=== PATIENT | female | born 1955 | race Hispanic/Latino ===

== ENCOUNTER 2022-11-20 10:01 | Emergency (ER) | payer BC ==
--- OUTSIDE RECORDS SUMMARY | 2022-11-20 10:07 | XMS REPORT | Continuity of Care Document ---
:1955 Author Organization [facility] t Address [address] [place] [address] [address] [place] [address] Care Team Providers Name Role Phone Kiko Burch MD Primary Care Physician Kiko Burch MD Attending Clinician Jb Leigh MD Attending Clinician Lab, Ang - Db Attending Clinician Unavailable KIKO BURCH Attending Clinician Unavailable Doctor Unassigned, Byron Attending Clinician Unavailable PHILIPP PALOMO Attending Clinician Unavailable Nurse, Zamzam Pob Immunization Attending Clinician Unavailable Philipp Palomo DO Attending Clinician Toshia Regan Attending Clinician Lab, Adc Fam Pob I Attending Clinician Unavailable TOSHIA ATKINS Attending Clinician Unavailable MIRTHA SHINE Attending Clinician Unavailable Payers Payer Name Policy Type Policy Number Effective Date Expiration Date S ource Problems Condition Condition Condition Status Onset Resolution Last Treating Co mments Source Name Details Category Date Date Treatment Clinician Date Hyperlipid Hyperlipid Disease Active U nivers emia, emia, 2-19 ity [place] hyperlipid hyperlipid Br anch emia type emia type Neck pain Neck pain Disease Active Uni vers 4-25 ity of 00:00: [place] 00 Medical Branch Anxiety Anxiety Disease Active 2014-03 Univers 1-17 ity of 00:00: [place] 00 Medical Branch Allergic Allergic Disease Active 2014-03 Unive rs rhinitis rhinitis 04-16 ity of 00:00: [place] 00 Medical Branch Arthritis Arthritis Disease Active 2014-03 Uni vers 04-16 ity of 00:00: [place] 00 Medical Branch Menopausal Menopausal Disease Active 2014-03 U nivers and and 04-16 ity of postmenopa postmenopa [place]al 00 Medical disorder disorder Branch Allergies, Adverse Reactions, Alerts Allergy Allergy Status Severity Reaction(s) Onset Inactive Treating Comm ents Source Name Type Date Date Clinician CODEINE DRUG Active Unknown-Cmnt 2014-03 Uni vers INGREDI 04-16 ity of 00:00: [place] 00 Medical Branch Codeine Propensi Active Unknown - 2014-03 Univ ers ty to See comments 04-16 ity of adverse 00:00: [place] reaction 00 Medical s Branch Social History Social Habit Start Date Stop Date Quantity Comments Source History of tobacco Current smoker Un iversity of use [facility] Gender identity Universit y of [facility] Sexual orientation Univer sity of [facility] History SDOH University [facility] History SDOH University o f Alcohol Std Drinks [place] [facility] [place] History SDOH University o f Alcohol Binge [place] [facility] History of Social 2022-09-04 2022-09-04 Univers ity of function 00:00:00 00:00:00 [facility] Exposure to 2021-06-02 2021-07-02 Not sure University of SARS-CoV-2 (event) 00:00:00 10:23:00 [facility] Alcohol intake 2021-07-02 2021-07-02 Current drinker of Un iversity of 00:00:00 00:00:00 alcohol (finding) [facility] [place] [facility] [place] Tobacco use and 2015-02-14 2015-02-14 Smokeless tobacco Un iversity of exposure 00:00:00 00:00:00 non-user [facility] Alcohol Comment 2015-02-14 2015-02-14 occasionally Univers ity of 00:00:00 00:00:00 [facility] Sex [birth year] Universit y of 00:00:00 00:00:00 [facility] Smoking Status Start Date Stop Date Source Ex-smoker 2015-02-14 00:00:00 2015-02-14 00:00:00 [facility] Medications Ordered Filled Start Stop Current Ordering Indication Dosage Frequency Signature Comments Components Source Medication Medication Date Date Medication? Clinician (SIG) Name Name FLUTICASONE Yes [id number] SPRAY 2 Univers PROPIONATE 8-15 SPRAYS ity of 50 00:00: INTO EACH [place] mcg/actuati 00 NOSTRIL IN Me dical on nasal THE Branch spray MORNING LEVOCETIRIZ Yes [id number] TAKE 1 Univers INE 5 mg 8-15 TABLET BY ity of tablet 00:00: MOUTH [place] 00 EVERY DAY Medical IN THE Branch EVENING estradioL 1 2022- Yes [id number] 1mg Take 1 Univers mg tablet 6-20 tablet by ity o f 00:00: mouth in [place] 00 the Medical morning. Branch estradioL 1 Yes [id number] 1mg Take 1 Univers mg tablet 6-20 tablet by ity o f 00:00: mouth in [place] 00 the Medical morning. Branch FENOFIBRATE Yes [id number] TAKE 1 Univers 160 mg 6-07 TABLET BY ity of tablet 00:00: MOUTH [place] 00 EVERY DAY Medical Branch FENOFIBRATE Yes [id number] TAKE 1 Univers 160 mg 6-07 TABLET BY ity of tablet 00:00: MOUTH [place] 00 EVERY DAY Medical Branch venlafaxine Yes [id number] 150mg Take 1 Univers XR 150 mg 6-07 capsule by ity of 24 hr 00:00: mouth [place] capsule 00 daily with Medica l breakfast. Branch fluticasone Yes [id number] 2{spray Use 2 Univers propionate 6-07 } Sprays in ity of 50 00:00: each [place] mcg/actuati 00 nostril in Me dical on nasal the Branch spray morning. Fenofibrate Yes [id number] 160mg Take 1 Univers 160 mg 6-07 tablet by ity of tablet 00:00: mouth in [place] 00 the Medical morning. Branch atorvastati Yes [id number] 20mg Take 1 Univers n 20 mg 6-07 tablet by ity of tablet 00:00: mouth at [place] 00 bedtime. Medical Branch fluocinonid Yes [id number] Apply to Univers e 0.05 % 6-07 area(s) 2 ity of cream 00:00: (two) [place] 00 times Medical daily. Branch venlafaxine Yes [id number] 150mg Take 1 Univers XR 150 mg 6-07 capsule by ity of 24 hr 00:00: mouth [place] capsule 00 daily with Medica l breakfast. Branch fluticasone 2022-0 Yes [id number] 2{spray Use 2 Univers propionate 6-07 } Sprays in ity of 50 00:00: each [place] mcg/actuati 00 nostril in Me dical on nasal the Branch spray morning. Fenofibrate 2022-0 Yes [id number] 160mg Take 1 Univers 160 mg 6-07 tablet by ity of tablet 00:00: mouth in [place] the Medical morning. Branch atorvastati 0 Yes [id number] 20mg Take 1 Univers n 20 mg 6-07 tablet by ity of tablet 00:00: mouth at [place] 00 bedtime. Medical Branch fluocinonid 2022-0 Yes [id number] Apply to Univers e 0.05 % 6-07 area(s) 2 ity of cream 00:00: (two) [place] 00 times Medical daily. Branch venlafaxine Yes [id number] 150mg Take 1 Univers XR 150 mg 6-07 capsule by ity of 24 hr 00:00: mouth [place] capsule 00 daily with Medica l breakfast. Branch fluticasone Yes [id number] 2{spray Use 2 Univers propionate 6-07 } Sprays in ity of 50 00:00: each [place] mcg/actuati 00 nostril in Me dical on nasal the Branch spray morning. Fenofibrate 2022-0 Yes [id number] 160mg Take 1 Univers 160 mg 6-07 tablet by ity of tablet 00:00: mouth in [place] the Medical morning. Branch atorvastati 2022-0 Yes [id number] 20mg Take 1 Univers n 20 mg 6-07 tablet by ity of tablet 00:00: mouth at [place] 00 bedtime. Medical Branch fluocinonid 2022-0 Yes [id number] Apply to Univers e 0.05 % 6-07 area(s) 2 ity of cream 00:00: (two) [place] 00 times Medical daily. Branch venlafaxine 2022-0 Yes [id number] 150mg Take 1 Univers XR 150 mg 6-07 capsule by ity of 24 hr 00:00: mouth [place] capsule 00 daily with Medica l breakfast. Branch fluticasone 2022-0 Yes [id number] 2{spray Use 2 Univers propionate 6-07 } Sprays in ity of 50 00:00: each [place] mcg/actuati 00 nostril in Me dical on nasal the Branch spray morning. Fenofibrate 2022-0 Yes [id number] 160mg Take 1 Univers 160 mg 6-07 tablet by ity of tablet 00:00: mouth in [place] 00 the Medical morning. Branch atorvastati 2022-0 Yes [id number] 20mg Take 1 Univers n 20 mg 6-07 tablet by ity of tablet 00:00: mouth at [place] 00 bedtime. Medical Branch fluocinonid 2022-0 Yes [id number] Apply to Univers e 0.05 % 6-07 area(s) 2 ity of cream 00:00: (two) [place] 00 times Medical daily. Branch venlafaxine 0 Yes [id number] 150mg Take 1 Univers XR 150 mg 6-07 capsule by ity of 24 hr 00:00: mouth [place] capsule 00 daily with Medica l breakfast. Branch fluticasone 2022-0 Yes [id number] 2{spray Use 2 Univers propionate 6-07 } Sprays in ity of 50 00:00: each [place] mcg/actuati 00 nostril in Me dical on nasal the Branch spray morning. Fenofibrate 2022-0 Yes [id number] 160mg Take 1 Univers 160 mg 6-07 tablet by ity of tablet 00:00: mouth in [place] the Medical morning. Branch atorvastati 2022-0 Yes [id number] 20mg Take 1 Univers n 20 mg 6-07 tablet by ity of tablet 00:00: mouth at [place] 00 bedtime. Medical Branch fluocinonid 2022-0 Yes [id number] Apply to Univers e 0.05 % 6-07 area(s) 2 ity of cream 00:00: (two) [place] 00 times Medical daily. Branch venlafaxine 2022-0 Yes [id number] 150mg Take 1 Univers XR 150 mg 6-07 capsule by ity of 24 hr 00:00: mouth [place] capsule 00 daily with Medica l breakfast. Branch Fenofibrate Yes [id number] 160mg Take 1 Univers 160 mg 6-07 tablet by ity of tablet 00:00: mouth in [place] 00 the Medical morning. Branch atorvastati Yes [id number] 20mg Take 1 Univers n 20 mg 6-07 tablet by ity of tablet 00:00: mouth at [place] 00 bedtime. Medical Branch fluocinonid Yes [id number] Apply to Univers e 0.05 % 09-04 area(s) 2 ity of cream 00:00: (two) [place] 00 times Medical daily. Branch fluticasone 2022- No [id number] 2{spray Use 2 Univers propionate 09-04 08-15 } Sprays in ity of 50 00:00: 00:00 each [place] mcg/actuati 00 :00 nostril in Fl dical on nasal the Branch spray morning. FENOFIBRATE 2022- No [id number] TAKE 1 Univers 160 mg 6-07 06-07 TABLET BY ity of tablet 00:00: 00:00 MOUTH [place] 00 :00 EVERY DAY Medical Branch FENOFIBRATE 2022- No [id number] TAKE 1 Univers 160 mg 6-07 06-07 TABLET BY ity of tablet 00:00: 00:00 MOUTH [place] 00 :00 EVERY DAY Medical Branch ATORVASTATI Yes [id number] 20mg TAKE 1 Univers N 20 mg 5-24 TABLET BY ity of tablet 00:00: MOUTH AT [place] [address] BEDTIME. Medical NEED APPT Branch AND FASTING LABS FOR FURTHER REFILLS ATORVASTATI Yes [id number] 20mg TAKE 1 Univers N 20 mg 5-24 TABLET BY ity of tablet 00:00: MOUTH AT [place] [address] BEDTIME. Medical NEED APPT Branch AND FASTING LABS FOR FURTHER REFILLS ATORVASTATI 2022- Yes [id number] 20mg TAKE 1 Univers N 20 mg 5-24 TABLET BY ity of tablet 00:00: MOUTH AT [place] [address] BEDTIME. Medical NEED APPT Branch AND FASTING LABS FOR FURTHER REFILLS ATORVASTATI 0 Yes [id number] 20mg TAKE 1 Univers N 20 mg 5-24 TABLET BY ity of tablet 00:00: MOUTH AT [place] 00 BEDTIME. Medical NEED APPT Branch AND FASTING LABS FOR FURTHER REFILLS ATORVASTATI 2022- No [id number] 20mg TAKE 1 Univers N 20 mg 5-24 06-07 TABLET BY ity of tablet 00:00: 00:00 MOUTH AT [place] 00 :00 BEDTIME. Medical NEED APPT Branch AND FASTING LABS FOR FURTHER REFILLS ATORVASTATI 2022- No [id number] 20mg TAKE 1 Univers N 20 mg 5-24 06-07 TABLET BY ity of tablet 00:00: 00:00 MOUTH AT [place] 00 :00 BEDTIME. Medical NEED APPT Branch AND FASTING LABS FOR FURTHER REFILLS atorvastati Yes [id number] 20mg Take 1 Univers n 20 mg 4-29 tablet by ity of tablet 00:00: mouth at [place] 00 bedtime. Medical Need Appt Branch and Fasting Labs for Further Refills atorvastati Yes [id number] 20mg Take 1 Univers n 20 mg 4-29 tablet by ity of tablet 00:00: mouth at [place] [address] bedtime. Medical Need Appt Branch and Fasting Labs for Further Refills atorvastati 2022- No [id number] 20mg Take 1 Univers n 20 mg 4-29 05-24 tablet by ity of tablet 00:00: 00:00 mouth at [place] 00 :00 bedtime. Medical Need Appt Branch and Fasting Labs for Further Refills FLUTICASONE Yes [id number] SPRAY 2 Univers PROPIONATE 3-22 SPRAYS ity of 50 00:00: INTO EACH [place] mcg/actuati 00 NOSTRIL Medic al on nasal EVERY DAY Branch spray FLUTICASONE 2022-0 Yes [id number] SPRAY 2 Univers PROPIONATE 3-22 SPRAYS ity of 50 00:00: INTO EACH [place] mcg/actuati 00 NOSTRIL Medic al on nasal EVERY DAY Branch spray FLUTICASONE 2022-0 Yes [id number] SPRAY 2 Univers PROPIONATE 3-22 SPRAYS ity of 50 00:00: INTO EACH [place] mcg/actuati 00 NOSTRIL Medic al on nasal EVERY DAY Branch spray FLUTICASONE 2022-0 Yes [id number] SPRAY 2 Univers PROPIONATE 3-22 SPRAYS ity of 50 00:00: INTO EACH [place] mcg/actuati 00 NOSTRIL Medic al on nasal EVERY DAY Branch spray FLUTICASONE Yes [id number] SPRAY 2 Univers PROPIONATE 3-22 SPRAYS ity of 50 00:00: INTO EACH [place] mcg/actuati 00 NOSTRIL Medic al on nasal EVERY DAY Branch spray FLUTICASONE Yes [id number] SPRAY 2 Univers PROPIONATE 3-22 SPRAYS ity of 50 00:00: INTO EACH [place] mcg/actuati 00 NOSTRIL Medic al on nasal EVERY DAY Branch spray FLUTICASONE Yes [id number] SPRAY 2 Univers PROPIONATE 3-22 SPRAYS ity of 50 00:00: INTO EACH [place] mcg/actuati 00 NOSTRIL Medic al on nasal EVERY DAY Branch spray FLUTICASONE Yes [id number] SPRAY 2 Univers PROPIONATE 3-22 SPRAYS ity of 50 00:00: INTO EACH [place] mcg/actuati 00 NOSTRIL Medic al on nasal EVERY DAY Branch spray FLUTICASONE 2022- No [id number] SPRAY 2 Univers PROPIONATE 3-22 06-07 SPRAYS ity of 50 00:00: 00:00 INTO EACH [place] mcg/actuati 00 :00 NOSTRIL Medic al on nasal EVERY DAY Branch spray FLUTICASONE 2022- No [id number] SPRAY 2 Univers PROPIONATE 3-22 06-07 SPRAYS ity of 50 00:00: 00:00 INTO EACH [place] mcg/actuati 00 :00 NOSTRIL Medic al on nasal EVERY DAY Branch spray FLUTICASONE Yes [id number] SPRAY 2 Univers PROPIONATE 2-24 SPRAYS ity of 50 00:00: INTO EACH [place] mcg/actuati 00 NOSTRIL Medic al on nasal EVERY DAY Branch spray FLUTICASONE Yes [id number] SPRAY 2 Univers PROPIONATE 2-24 SPRAYS ity of 50 00:00: INTO EACH [place] mcg/actuati 00 NOSTRIL Medic al on nasal EVERY DAY Branch spray FLUTICASONE 2022- No [id number] SPRAY 2 Univers PROPIONATE 2-24 03-22 SPRAYS ity of 50 00:00: 00:00 INTO EACH [place] mcg/actuati 00 :00 NOSTRIL Medic al on nasal EVERY DAY Branch spray LEVOCETIRIZ Yes [id number] TAKE 1 Univers INE 5 mg 2-20 TABLET BY ity of tablet 00:00: MOUTH [place] 00 EVERY DAY Medical IN THE [place] EVENING LEVOCETIRIZ Yes [id number] TAKE 1 Univers INE 5 mg 2-20 TABLET BY ity of tablet 00:00: MOUTH [place] 00 EVERY DAY Medical IN THE [place] EVENING LEVOCETIRIZ 0 Yes [id number] TAKE 1 Univers INE 5 mg 2-20 TABLET BY ity of tablet 00:00: MOUTH [place] 00 EVERY DAY Medical IN THE [place] EVENING LEVOCETIRIZ Yes [id number] TAKE 1 Univers INE 5 mg 2-20 TABLET BY ity of tablet 00:00: MOUTH [place] 00 EVERY DAY Medical IN THE [place] EVENING LEVOCETIRIZ Yes [id number] TAKE 1 Univers INE 5 mg 2-20 TABLET BY ity of tablet 00:00: MOUTH [place] 00 EVERY DAY Medical IN THE [place] EVENING LEVOCETIRIZ Yes [id number] TAKE 1 Univers INE 5 mg 2-20 TABLET BY ity of tablet 00:00: MOUTH [place] 00 EVERY DAY Medical IN THE [place] EVENING LEVOCETIRIZ Yes [id number] TAKE 1 Univers INE 5 mg 2-20 TABLET BY ity of tablet 00:00: MOUTH [place] 00 EVERY DAY Medical IN THE [place] EVENING LEVOCETIRIZ Yes [id number] TAKE 1 Univers INE 5 mg 2-20 TABLET BY ity of tablet 00:00: MOUTH [place] 00 EVERY DAY Medical IN THE [place] EVENING LEVOCETIRIZ Yes [id number] TAKE 1 Univers INE 5 mg 2-20 TABLET BY ity of tablet 00:00: MOUTH [place] 00 EVERY DAY Medical IN THE [place] EVENING LEVOCETIRIZ Yes [id number] TAKE 1 Univers INE 5 mg 2-20 TABLET BY ity of tablet 00:00: MOUTH [place] 00 EVERY DAY Medical IN THE [place] EVENING LEVOCETIRIZ Yes [id number] TAKE 1 Univers INE 5 mg 2-20 TABLET BY ity of tablet 00:00: MOUTH [place] 00 EVERY DAY Medical IN THE [place] EVENING LEVOCETIRIZ 0 Yes [id number] TAKE 1 Univers INE 5 mg 2-20 TABLET BY ity of tablet 00:00: MOUTH [place] 00 EVERY DAY Medical IN THE [place] EVENING LEVOCETIRIZ Yes [id number] TAKE 1 Univers INE 5 mg 2-20 TABLET BY ity of tablet 00:00: MOUTH [place] 00 EVERY DAY Medical IN THE [place] EVENING LEVOCETIRIZ 2022-0 Yes [id number] TAKE 1 Univers INE 5 mg 2-20 TABLET BY ity of tablet 00:00: MOUTH [place] 00 EVERY DAY Medical IN THE [place] EVENING LEVOCETIRIZ 2022-0 Yes [id number] TAKE 1 Univers INE 5 mg 2-20 TABLET BY ity of tablet 00:00: MOUTH [place] 00 EVERY DAY Medical IN THE [place] EVENING LEVOCETIRIZ 2022-0 Yes [id number] TAKE 1 Univers INE 5 mg 2-20 TABLET BY ity of tablet 00:00: MOUTH [place] 00 EVERY DAY Medical IN THE [place] EVENING LEVOCETIRIZ 0 2023- No [id number] TAKE 1 Univers INE 5 mg 2-20 08-15 TABLET BY ity o f tablet 00:00: 00:00 MOUTH [place] 00 :00 EVERY DAY Medical IN THE [place] EVENING VENLAFAXINE 0 Yes [id number] 150mg TAKE 1 Univers XR 150 mg 2-14 CAPSULE BY ity of 24 hr 00:00: MOUTH [place] capsule 00 DAILY WITH Medica l BREAKFAST. [place] VENLAFAXINE Yes [id number] 150mg TAKE 1 Univers XR 150 mg 2-14 CAPSULE BY ity of 24 hr 00:00: MOUTH [place] capsule 00 DAILY WITH Medica l BREAKFAST. [place] VENLAFAXINE 0 Yes [id number] 150mg TAKE 1 Univers XR 150 mg 2-14 CAPSULE BY ity of 24 hr 00:00: MOUTH [place] capsule 00 DAILY WITH Medica l BREAKFAST. [place] VENLAFAXINE 0 Yes [id number] 150mg TAKE 1 Univers XR 150 mg 2-14 CAPSULE BY ity of 24 hr 00:00: MOUTH [place] capsule 00 DAILY WITH Medica l BREAKFAST. [place] VENLAFAXINE 0 Yes [id number] 150mg TAKE 1 Univers XR 150 mg 2-14 CAPSULE BY ity of 24 hr 00:00: MOUTH [place] capsule 00 DAILY WITH Medica l BREAKFAST. [place] VENLAFAXINE 0 Yes [id number] 150mg TAKE 1 Univers XR 150 mg 2-14 CAPSULE BY ity of 24 hr 00:00: MOUTH [place] capsule 00 DAILY WITH Medica l BREAKFAST. [place] VENLAFAXINE Yes [id number] 150mg TAKE 1 Univers XR 150 mg 2-14 CAPSULE BY ity of 24 hr 00:00: MOUTH [place] capsule 00 DAILY WITH Medica l BREAKFAST. Branch VENLAFAXINE 2022-0 Yes [id number] 150mg TAKE 1 Univers XR 150 mg 2-14 CAPSULE BY ity of 24 hr 00:00: MOUTH [place] capsule 00 DAILY WITH Medica l BREAKFAST. Branch VENLAFAXINE 2022-0 Yes [id number] 150mg TAKE 1 Univers XR 150 mg 2-14 CAPSULE BY ity of 24 hr 00:00: MOUTH [place] capsule 00 DAILY WITH Medica l BREAKFAST. Branch VENLAFAXINE 2022-0 Yes [id number] 150mg TAKE 1 Univers XR 150 mg 2-14 CAPSULE BY ity of 24 hr 00:00: MOUTH [place] capsule 00 DAILY WITH Medica l BREAKFAST. Branch VENLAFAXINE 2022-0 Yes [id number] 150mg TAKE 1 Univers XR 150 mg 2-14 CAPSULE BY ity of 24 hr 00:00: MOUTH [place] capsule 00 DAILY WITH Medica l BREAKFAST. Branch VENLAFAXINE 2022-0 Yes [id number] 150mg TAKE 1 Univers XR 150 mg 2-14 CAPSULE BY ity of 24 hr 00:00: MOUTH [place] capsule 00 DAILY WITH Medica l BREAKFAST. Branch VENLAFAXINE 0 3- No [id number] 150mg TAKE 1 Univers XR 150 mg 2-14 06-07 CAPSULE BY ity of 24 hr 00:00: 00:00 MOUTH [place] capsule 00 :00 DAILY WITH Medica l BREAKFAST. Branch VENLAFAXINE 2022-0 3- No [id number] 150mg TAKE 1 Univers XR 150 mg 2-14 06-07 CAPSULE BY ity of 24 hr 00:00: 00:00 MOUTH [place] capsule 00 :00 DAILY WITH Medica l BREAKFAST. Branch ATORVASTATI 2022-0 Yes [id number] TAKE 1 Univers N 20 mg 2-01 TABLET BY ity of tablet 00:00: MOUTH [place] 00 EVERYDAY Medical AT BEDTIME Branch ATORVASTATI 2022-0 Yes [id number] TAKE 1 Univers N 20 mg 2-01 TABLET BY ity of tablet 00:00: MOUTH [place] 00 EVERYDAY Medical AT BEDTIME Branch ATORVASTATI 2022-0 Yes [id number] TAKE 1 Univers N 20 mg 2-01 TABLET BY ity of tablet 00:00: MOUTH [place] 00 EVERYDAY Medical AT BEDTIME Branch ATORVASTATI 2022-0 Yes [id number] TAKE 1 Univers N 20 mg 2-01 TABLET BY ity of tablet 00:00: MOUTH [place] 00 EVERYDAY Medical AT BEDTIME Branch ATORVASTATI 0 Yes [id number] TAKE 1 Univers N 20 mg 2-01 TABLET BY ity of tablet 00:00: MOUTH [place] 00 EVERYDAY Medical AT BEDTIME Branch ATORVASTATI 2022-0 Yes [id number] TAKE 1 Univers N 20 mg 2-01 TABLET BY ity of tablet 00:00: MOUTH [place] 00 EVERYDAY Medical AT BEDTIME Branch ATORVASTATI 2022-0 Yes [id number] TAKE 1 Univers N 20 mg 2-01 TABLET BY ity of tablet 00:00: MOUTH [place] 00 EVERYDAY Medical AT BEDTIME Branch ATORVASTATI 0 2022- No [id number] TAKE 1 Univers N 20 mg 2-01 - TABLET BY ity of tablet 00:00: 00:00 MOUTH [place] 00 :00 EVERYDAY Medical AT BEDTIME Branch FLUTICASONE 0 Yes [id number] SPRAY 2 Univers PROPIONATE 1-30 SPRAYS ity of 50 00:00: INTO EACH [place] mcg/actuati 00 NOSTRIL Medic al on nasal EVERY DAY Branch spray FLUTICASONE Yes [id number] SPRAY 2 Univers PROPIONATE 1-30 SPRAYS ity of 50 00:00: INTO EACH [place] mcg/actuati 00 NOSTRIL Medic al on nasal EVERY DAY Branch spray FLUTICASONE 0 Yes [id number] SPRAY 2 Univers PROPIONATE 1-30 SPRAYS ity of 50 00:00: INTO EACH [place] mcg/actuati 00 NOSTRIL Medic al on nasal EVERY DAY Branch spray FLUTICASONE 0 Yes [id number] SPRAY 2 Univers PROPIONATE 1-30 SPRAYS ity of 50 00:00: INTO EACH [place] mcg/actuati 00 NOSTRIL Medic al on nasal EVERY DAY Branch spray FLUTICASONE 0 2022- No [id number] SPRAY 2 Univers PROPIONATE 1-30 02-24 SPRAYS ity of 50 00:00: 00:00 INTO EACH [place] mcg/actuati 00 :00 NOSTRIL Medic al on nasal EVERY DAY Branch spray FLUTICASONE 1 Yes [id number] SPRAY 2 Univers PROPIONATE 2-30 SPRAYS ity of 50 00:00: INTO EACH [place] mcg/actuati 00 NOSTRIL Medic al on nasal EVERY DAY Branch spray FLUTICASONE 2021-033- No [id number] SPRAY 2 Univers PROPIONATE 2-30 01-30 SPRAYS ity of 50 00:00: 00:00 INTO EACH [place] mcg/actuati 00 :00 NOSTRIL Medic al on nasal EVERY DAY Branch spray FENOFIBRATE 2021-03 Yes [id number] TAKE 1 Univers 160 mg 2-12 TABLET BY ity of tablet 00:00: [facility] EVERY DAY Medical Branch FENOFIBRATE 2021-03 Yes [id number] TAKE 1 Univers 160 mg 2-12 TABLET BY ity of tablet 00:00: [facility] EVERY DAY Medical Branch FENOFIBRATE 2021-03 Yes [id number] TAKE 1 Univers 160 mg 2-12 TABLET BY ity of tablet 00:00: [facility] EVERY DAY Medical Branch FENOFIBRATE 2021-03 Yes [id number] TAKE 1 Univers 160 mg 2-12 TABLET BY ity of tablet 00:00: [facility] EVERY DAY Medical Branch FENOFIBRATE 2021-03 Yes [id number] TAKE 1 Univers 160 mg 2-12 TABLET BY ity of tablet 00:00: [facility] EVERY DAY Medical Branch FENOFIBRATE 2021-03 Yes [id number] TAKE 1 Univers 160 mg 2-12 TABLET BY ity of tablet 00:00: [facility] EVERY DAY Medical Branch FENOFIBRATE 2021-03 Yes [id number] TAKE 1 Univers 160 mg 2-12 TABLET BY ity of tablet 00:00: [facility] EVERY DAY Medical Branch FENOFIBRATE 2021-03 Yes [id number] TAKE 1 Univers 160 mg 2-12 TABLET BY ity of tablet 00:00: [facility] EVERY DAY Medical Branch FENOFIBRATE 2021-03 Yes [id number] TAKE 1 Univers 160 mg 2-12 TABLET BY ity of tablet 00:00: [facility] EVERY DAY Medical Branch FENOFIBRATE 2021-03 Yes [id number] TAKE 1 Univers 160 mg 2-12 TABLET BY ity of tablet 00:00: [facility] EVERY DAY Medical Branch FENOFIBRATE 2021-03 Yes [id number] TAKE 1 Univers 160 mg 2-12 TABLET BY ity of tablet 00:00: [facility] EVERY DAY Medical Branch FENOFIBRATE 2021-03 Yes [id number] TAKE 1 Univers 160 mg 2-12 TABLET BY ity of tablet 00:00: MOUTH [place] 00 EVERY DAY Medical Branch FENOFIBRATE 2021-03 Yes [id number] TAKE 1 Univers 160 mg 2-12 TABLET BY ity of tablet 00:00: MOUTH [place] 00 EVERY DAY Medical Branch FENOFIBRATE 2021-03 Yes [id number] TAKE 1 Univers 160 mg 2-12 TABLET BY ity of tablet 00:00: MOUTH [place] 00 EVERY DAY Medical Branch FENOFIBRATE 2021-03- No [id number] TAKE 1 Univers 160 mg 2-12 06-07 TABLET BY ity of tablet 00:00: 00:00 MOUTH [place] 00 :00 EVERY DAY Medical Branch FLUTICASONE 2021-03 Yes [id number] SPRAY 2 Univers PROPIONATE 1-30 SPRAYS ity of 50 00:00: INTO EACH [place] mcg/actuati 00 NOSTRIL Medic al on nasal EVERY DAY Branch spray FLUTICASONE 2021-03 Yes [id number] SPRAY 2 Univers PROPIONATE 1-30 SPRAYS ity of 50 00:00: INTO EACH [place] mcg/actuati 00 NOSTRIL Medic al on nasal EVERY DAY Branch spray FLUTICASONE 2021-03- No [id number] SPRAY 2 Univers PROPIONATE 1-30 12-30 SPRAYS ity of 50 00:00: 00:00 INTO EACH [place] mcg/actuati 00 :00 NOSTRIL Medic al on nasal EVERY DAY Branch spray LEVOCETIRIZ 2021-03 Yes [id number] TAKE 1 Univers INE 5 mg 1-21 TABLET BY ity of tablet 00:00: MOUTH [place] 00 EVERY DAY Medical IN THE Branch EVENING LEVOCETIRIZ 2021-03 Yes [id number] TAKE 1 Univers INE 5 mg 1-21 TABLET BY ity of tablet 00:00: MOUTH [place] 00 EVERY DAY Medical IN THE Branch EVENING LEVOCETIRIZ 2021-03 Yes [id number] TAKE 1 Univers INE 5 mg 1-21 TABLET BY ity of tablet 00:00: MOUTH [place] 00 EVERY DAY Medical IN THE Branch EVENING LEVOCETIRIZ 2021-03 Yes [id number] TAKE 1 Univers INE 5 mg 1-21 TABLET BY ity of tablet 00:00: MOUTH [place] 00 EVERY DAY Medical IN THE Branch EVENING LEVOCETIRIZ 2021-03 Yes [id number] TAKE 1 Univers INE 5 mg 1-21 TABLET BY ity of tablet 00:00: MOUTH [place] 00 EVERY DAY Medical IN THE Branch EVENING LEVOCETIRIZ 2021-03 Yes [id number] TAKE 1 [facility] INE 5 mg 1-21 TABLET BY [facility] of tablet 00:00: MOUTH [place] 00 EVERY DAY Medical IN THE Branch EVENING LEVOCETIRIZ 2021-03 Yes [id number] TAKE 1 [facility] INE 5 mg 1-21 TABLET BY [facility] of tablet 00:00: MOUTH [place] 00 EVERY DAY Medical IN THE [place] EVENING LEVOCETIRIZ 2021-033- No [id number] TAKE 1 [facility] INE 5 mg 1-21 02-20 TABLET BY ity o f tablet 00:00: 00:00 MOUTH [place] 00 :00 EVERY DAY Medical IN THE [place] EVENING ESTRADIOL 1 2021-03 Yes [id number] TAKE 1 [facility] mg tablet 1-18 TABLET BY ity o f 00:00: MOUTH [place] 00 EVERY DAY Medical Branch ESTRADIOL 1 2021-03 Yes [id number] TAKE 1 [facility] mg tablet 1-18 TABLET BY ity o f 00:00: MOUTH [place] 00 EVERY DAY Medical Branch ESTRADIOL 1 2021-03 Yes [id number] TAKE 1 [facility] mg tablet 1-18 TABLET BY ity o f 00:00: MOUTH [place] 00 EVERY DAY Medical Branch ESTRADIOL 1 2021-03 Yes [id number] TAKE 1 [facility] mg tablet 1-18 TABLET BY ity o f 00:00: MOUTH [place] 00 EVERY DAY Medical Branch ESTRADIOL 1 2021-03 Yes [id number] TAKE 1 [facility] mg tablet 1-18 TABLET BY ity o f 00:00: MOUTH [place] 00 EVERY DAY Medical Branch ESTRADIOL 1 2021-03 Yes [id number] TAKE 1 [facility] mg tablet 1-18 TABLET BY ity o f 00:00: MOUTH [place] 00 EVERY DAY Medical Branch ESTRADIOL 1 2021-03 Yes [id number] TAKE 1 [facility] mg tablet 1-18 TABLET BY ity o f 00:00: MOUTH [place] 00 EVERY DAY Medical Branch ESTRADIOL 1 2021-03 Yes [id number] TAKE 1 [facility] mg tablet 1-18 TABLET BY ity o f 00:00: MOUTH [place] 00 EVERY DAY Medical Branch ESTRADIOL 1 2021-03 Yes [id number] TAKE 1 [facility] mg tablet 1-18 TABLET BY ity o f 00:00: MOUTH [place] 00 EVERY DAY Medical Branch ESTRADIOL 1 2021-03 Yes [id number] TAKE 1 [facility] mg tablet 1-18 TABLET BY ity o f 00:00: MOUTH [place] 00 EVERY DAY Medical Branch ESTRADIOL 1 2021-03 Yes [id number] TAKE 1 [facility] mg tablet 1-18 TABLET BY ity o f 00:00: MOUTH [place] 00 EVERY DAY Medical Branch ESTRADIOL 1 2021-03 Yes [id number] TAKE 1 [facility] mg tablet 1-18 TABLET BY ity o f 00:00: MOUTH [place] 00 EVERY DAY Medical Branch ESTRADIOL 1 2021-03 Yes [id number] TAKE 1 [facility] mg tablet 1-18 TABLET BY ity o f 00:00: MOUTH [place] 00 EVERY DAY Medical Branch ESTRADIOL 1 2021-03 Yes [id number] TAKE 1 [facility] mg tablet 1-18 TABLET BY ity o f 00:00: MOUTH [place] 00 EVERY DAY Medical Branch ESTRADIOL 1 2021-03 Yes [id number] TAKE 1 [facility] mg tablet 1-18 TABLET BY ity o f 00:00: MOUTH [place] 00 EVERY DAY Medical Branch ESTRADIOL 1 2021-03 Yes [id number] TAKE 1 [facility] mg tablet 1-18 TABLET BY ity o f 00:00: MOUTH [place] 00 EVERY DAY Medical Branch ESTRADIOL 1 2021-03 Yes [id number] TAKE 1 [facility] mg tablet 1-18 TABLET BY ity o f 00:00: MOUTH [place] 00 EVERY DAY Medical Branch ESTRADIOL 1 2021-03 Yes [id number] TAKE 1 [facility] mg tablet 1-18 TABLET BY ity o f 00:00: MOUTH [place] 00 EVERY DAY Medical Branch ESTRADIOL 1 2021-03 Yes [id number] TAKE 1 [facility] mg tablet 1-18 TABLET BY ity o f 00:00: MOUTH [place] 00 EVERY DAY Medical Branch ESTRADIOL 1 2021-03 Yes [id number] TAKE 1 [facility] mg tablet 1-18 TABLET BY ity o f 00:00: MOUTH [place] 00 EVERY DAY Medical Branch ESTRADIOL 1 2021-03 Yes [id number] TAKE 1 [facility] mg tablet 1-18 TABLET BY ity o f 00:00: MOUTH [place] 00 EVERY DAY Medical Branch ESTRADIOL 1 2021-03 Yes [id number] TAKE 1 [facility] mg tablet 1-18 TABLET BY ity o f 00:00: MOUTH [place] 00 EVERY DAY Medical Branch ESTRADIOL 1 2021-2022- No [id number] TAKE 1 [facility] mg tablet 1-18 06-20 TABLET BY ity of 00:00: 00:00 MOUTH [place] 00 :00 EVERY DAY Medical Branch atorvastati 2021-03 Yes [id number] TAKE 1 [facility] n 20 mg 1-01 TABLET BY ity of tablet 00:00: MOUTH [place] 00 EVERYDAY Medical AT BEDTIME Branch atorvastati 2021-03 Yes [id number] TAKE 1 [facility] n 20 mg 1-01 TABLET BY ity of tablet 00:00: MOUTH [place] 00 EVERYDAY Medical AT [facility] 2021-03 Yes [id number] TAKE 1 [facility] n 20 mg 1-01 TABLET BY ity of tablet 00:00: MOUTH [place] 00 EVERYDAY Medical AT [facility] 2021-03 Yes [id number] TAKE 1 [facility] n 20 mg 1-01 TABLET BY ity of tablet 00:00: MOUTH [place] 00 EVERYDAY Medical AT [facility] 2021-03 Yes [id number] TAKE 1 [facility] n 20 mg 1-01 TABLET BY ity of tablet 00:00: MOUTH [place] 00 EVERYDAY Medical AT [facility] 2021-03 Yes [id number] TAKE 1 [facility] n 20 mg 1-01 TABLET BY ity of tablet 00:00: MOUTH [place] 00 EVERYDAY Medical AT [facility] 2021-03 Yes [id number] TAKE 1 [facility] n 20 mg 1-01 TABLET BY ity of tablet 00:00: MOUTH [place] 00 EVERYDAY Medical AT [facility] 2021-03 Yes [id number] TAKE 1 [facility] n 20 mg 1-01 TABLET BY ity of tablet 00:00: MOUTH [place] 00 EVERYDAY Medical AT [facility] 2021-03- No [id number] TAKE 1 [facility] n 20 mg 1-01 02- TABLET BY ity of tablet 00:00: 00:00 MOUTH [place] 00 :00 EVERYDAY Medical AT [facility] LEVOCETIR Yes [id number] TAKE 1 [facility] INE 5 mg 8-18 TABLET BY ity of tablet 00:00: MOUTH [place] 00 EVERY DAY Medical IN THE [place] EVENING LEVOCETIRIZ Yes [id number] TAKE 1 [facility] INE 5 mg 8-18 TABLET BY ity of tablet 00:00: MOUTH [place] 00 EVERY DAY Medical IN THE [place] EVENING LEVOCETIRIZ Yes [id number] TAKE 1 [facility] INE 5 mg 8-18 TABLET BY ity of tablet 00:00: MOUTH [place] 00 EVERY DAY Medical IN THE [place] EVENING LEVOCETIRIZ Yes [id number] TAKE 1 [facility] INE 5 mg 8-18 TABLET BY ity of tablet 00:00: MOUTH [place] 00 EVERY DAY Medical IN THE [place] EVENING LEVOCETIRIZ Yes [id number] TAKE 1 [facility] INE 5 mg 8-18 TABLET BY ity of tablet 00:00: MOUTH [place] 00 EVERY DAY Medical IN THE Branch EVENING LEVOCETIRIZ Yes [id number] TAKE 1 [facility] INE 5 mg 8-18 TABLET BY ity of tablet 00:00: MOUTH [place] 00 EVERY DAY Medical IN THE Branch EVENING LEVOCETIRIZ 0 Yes [id number] TAKE 1 [facility] INE 5 mg 8-18 TABLET BY ity of tablet 00:00: MOUTH [place] 00 EVERY DAY Medical IN THE Branch EVENING LEVOCETIRIZ 2021- No [id number] TAKE 1 [facility] INE 5 mg 8-18 11-21 TABLET BY ity o f tablet 00:00: 00:00 MOUTH [place] 00 :00 EVERY DAY Medical IN THE Branch EVENING FLUTICASONE Yes [id number] SPRAY 2 [facility] PROPIONATE 7-27 SPRAYS ity of 50 00:00: INTO EACH [place] mcg/actuati 00 NOSTRIL Medic al on nasal EVERY DAY Branch spray FLUTICASONE Yes [id number] SPRAY 2 [facility] PROPIONATE 7-27 SPRAYS ity of 50 00:00: INTO EACH [place] mcg/actuati 00 NOSTRIL Medic al on nasal EVERY DAY Branch spray FLUTICASONE Yes [id number] SPRAY 2 [facility] PROPIONATE 7-27 SPRAYS ity of 50 00:00: INTO EACH [place] mcg/actuati 00 NOSTRIL Medic al on nasal EVERY DAY Branch spray FLUTICASONE Yes [id number] SPRAY 2 [facility] PROPIONATE 7-27 SPRAYS ity of 50 00:00: INTO EACH [place] mcg/actuati 00 NOSTRIL Medic al on nasal EVERY DAY Branch spray FLUTICASONE Yes [id number] SPRAY 2 [facility] PROPIONATE 7-27 SPRAYS ity of 50 00:00: INTO EACH [place] mcg/actuati 00 NOSTRIL Medic al on nasal EVERY DAY Branch spray FLUTICASONE 0 Yes [id number] SPRAY 2 [facility] PROPIONATE 7-27 SPRAYS ity of 50 00:00: INTO EACH [place] mcg/actuati 00 NOSTRIL Medic al on nasal EVERY DAY Branch spray FLUTICASONE 0 Yes [id number] SPRAY 2 [facility] PROPIONATE 7-27 SPRAYS ity of 50 00:00: INTO EACH [place] mcg/actuati 00 NOSTRIL Medic al on nasal EVERY DAY Branch spray FLUTICASONE Yes [id number] SPRAY 2 [facility] PROPIONATE 7-27 SPRAYS ity of 50 00:00: INTO EACH [place] mcg/actuati 00 NOSTRIL Medic al on nasal EVERY DAY Branch spray FLUTICASONE Yes [id number] SPRAY 2 [facility] PROPIONATE 7-27 SPRAYS ity of 50 00:00: INTO EACH [place] mcg/actuati 00 NOSTRIL Medic al on nasal EVERY DAY Branch spray FLUTICASONE 2021- No [id number] SPRAY 2 [facility] PROPIONATE 7-27 11-30 SPRAYS ity of 50 00:00: 00:00 INTO EACH [place] mcg/actuati 00 :00 NOSTRIL Medic al on nasal EVERY DAY Branch spray VENLAFAXINE Yes [id number] 150mg TAKE 1 [facility] XR 150 mg 7-06 CAPSULE BY ity of 24 hr 00:00: MOUTH [place] capsule 00 DAILY WITH Medica l BREAKFAST. Branch VENLAFAXINE Yes [id number] 150mg TAKE 1 [facility] XR 150 mg 7-06 CAPSULE BY ity of 24 hr 00:00: MOUTH [place] capsule 00 DAILY WITH Medica l BREAKFAST. Branch VENLAFAXINE Yes [id number] 150mg TAKE 1 [facility] XR 150 mg 7-06 CAPSULE BY ity of 24 hr 00:00: MOUTH [place] capsule 00 DAILY WITH Medica l BREAKFAST. Branch VENLAFAXINE Yes [id number] 150mg TAKE 1 [facility] XR 150 mg 7-06 CAPSULE BY ity of 24 hr 00:00: MOUTH [place] capsule 00 DAILY WITH Medica l BREAKFAST. Branch VENLAFAXINE Yes [id number] 150mg TAKE 1 [facility] XR 150 mg 7-06 CAPSULE BY ity of 24 hr 00:00: MOUTH [place] capsule 00 DAILY WITH Medica l BREAKFAST. Branch VENLAFAXINE Yes [id number] 150mg TAKE 1 [facility] XR 150 mg 7-06 CAPSULE BY ity of 24 hr 00:00: MOUTH [place] capsule 00 DAILY WITH Medica l BREAKFAST. Branch VENLAFAXINE Yes [id number] 150mg TAKE 1 [facility] XR 150 mg 7-06 CAPSULE BY ity of 24 hr 00:00: MOUTH [place] capsule 00 DAILY WITH Medica l BREAKFAST. Branch VENLAFAXINE Yes [id number] 150mg TAKE 1 [facility] XR 150 mg 7-06 CAPSULE BY ity of 24 hr 00:00: MOUTH [place] capsule 00 DAILY WITH Medica l BREAKFAST. Branch VENLAFAXINE 0 Yes [id number] 150mg TAKE 1 [facility] XR 150 mg 7-06 CAPSULE BY ity of 24 hr 00:00: MOUTH [place] capsule 00 DAILY WITH Medica l BREAKFAST. Branch VENLAFAXINE 0 Yes [id number] 150mg TAKE 1 [facility] XR 150 mg 7-06 CAPSULE BY ity of 24 hr 00:00: MOUTH [place] capsule 00 DAILY WITH Medica l BREAKFAST. Branch VENLAFAXINE 0 Yes [id number] 150mg TAKE 1 [facility] XR 150 mg 7-06 CAPSULE BY ity of 24 hr 00:00: MOUTH [place] capsule 00 DAILY WITH Medica l BREAKFAST. Branch VENLAFAXINE Yes [id number] 150mg TAKE 1 [facility] XR 150 mg 7-06 CAPSULE BY ity of 24 hr 00:00: MOUTH [place] capsule 00 DAILY WITH Medica l BREAKFAST. Branch VENLAFAXINE 0 Yes [id number] 150mg TAKE 1 [facility] XR 150 mg 7-06 CAPSULE BY ity of 24 hr 00:00: MOUTH [place] capsule 00 DAILY WITH Medica l BREAKFAST. Branch VENLAFAXINE 0 Yes [id number] 150mg TAKE 1 [facility] XR 150 mg 7-06 CAPSULE BY ity of 24 hr 00:00: MOUTH [place] capsule 00 DAILY WITH Medica l BREAKFAST. Branch VENLAFAXINE Yes [id number] 150mg TAKE 1 [facility] XR 150 mg 7-06 CAPSULE BY ity of 24 hr 00:00: MOUTH [place] capsule 00 DAILY WITH Medica l BREAKFAST. Branch VENLAFAXINE 3- No [id number] 150mg TAKE 1 [facility] XR 150 mg 7-06 02-14 CAPSULE BY ity of 24 hr 00:00: 00:00 MOUTH [place] capsule 00 :00 DAILY WITH Medica l BREAKFAST. Branch FLUTICASONE 2021-0 Yes [id number] SPRAY 2 [facility] PROPIONATE 6-27 SPRAYS ity of 50 00:00: INTO EACH [place] mcg/actuati 00 NOSTRIL Medic al on nasal EVERY DAY Branch spray FLUTICASONE 2021-0 Yes [id number] SPRAY 2 [facility] PROPIONATE 6-27 SPRAYS ity of 50 00:00: INTO EACH [place] mcg/actuati 00 NOSTRIL Medic al on nasal EVERY DAY Branch spray FLUTICASONE 2021-0 2- No [id number] SPRAY 2 [facility] PROPIONATE 627 07-27 SPRAYS ity of 50 00:00: 00:00 INTO EACH [place] mcg/actuati 00 :00 NOSTRIL Medic al on nasal EVERY DAY Branch spray DICLOFENAC 2021-0 Yes [id number] TAKE 1 [facility] 50 mg EC 6-03 TABLET BY ity of tablet 00:00: [facility] 00 THREE Medical TIMES A Branch DAY WITH MEALS DICLOFENAC 2-0 Yes [id number] TAKE 1 [facility] 50 mg EC 6-03 TABLET BY ity of tablet 00:00: [facility] 00 THREE Medical TIMES A Branch DAY WITH MEALS DICLOFENAC 2-0 Yes [id number] TAKE 1 [facility] 50 mg EC 6-03 TABLET BY ity of tablet 00:00: [facility] 00 THREE Medical TIMES A Branch DAY WITH MEALS DICLOFENAC 2022-0 Yes [id number] TAKE 1 [facility] 50 mg EC 6-03 TABLET BY ity of tablet 00:00: [facility] 00 THREE Medical TIMES A Branch DAY WITH MEALS DICLOFENAC 2-0 Yes [id number] TAKE 1 [facility] 50 mg EC 6-03 TABLET BY ity of tablet 00:00: [facility] 00 THREE Medical TIMES A Branch DAY WITH MEALS DICLOFENAC 2022-0 Yes [id number] TAKE 1 [facility] 50 mg EC 6-03 TABLET BY ity of tablet 00:00: [facility] 00 THREE Medical TIMES A Branch DAY WITH MEALS DICLOFENAC 2022-0 Yes [id number] TAKE 1 [facility] 50 mg EC 6-03 TABLET BY ity of tablet 00:00: [facility] 00 THREE Medical TIMES A Branch DAY WITH MEALS DICLOFENAC 2022-0 Yes [id number] TAKE 1 [facility] 50 mg EC 6-03 TABLET BY ity of tablet 00:00: [facility] 00 THREE Medical TIMES A Branch DAY WITH MEALS DICLOFENAC 2022-0 Yes [id number] TAKE 1 [facility] 50 mg EC 6-03 TABLET BY ity of tablet 00:00: [facility] 00 THREE Medical TIMES A Branch DAY WITH MEALS DICLOFENAC 2022-0 Yes [id number] TAKE 1 [facility] 50 mg EC 6-03 TABLET BY ity of tablet 00:00: [facility] 00 THREE Medical TIMES A Branch DAY WITH MEALS DICLOFENAC 2022-0 Yes [id number] TAKE 1 [facility] 50 mg EC 6-03 TABLET BY ity of tablet 00:00: [facility] 00 THREE Medical TIMES A Branch DAY WITH MEALS DICLOFENAC 2022-0 Yes [id number] TAKE 1 [facility] 50 mg EC 6-03 TABLET BY ity of tablet 00:00: MOUTH [place] 00 THREE Medical TIMES A Branch DAY WITH MEALS DICLOFENAC 2022-0 Yes [id number] TAKE 1 [facility] 50 mg EC 6-03 TABLET BY ity of tablet 00:00: MOUTH [place] 00 THREE Medical TIMES A Branch DAY WITH MEALS DICLOFENAC 2022-0 Yes [id number] TAKE 1 [facility] 50 mg EC 6-03 TABLET BY ity of tablet 00:00: MOUTH [place] 00 THREE Medical TIMES A Branch DAY WITH MEALS DICLOFENAC 2022-0 Yes [id number] TAKE 1 [facility] 50 mg EC 6-03 TABLET BY ity of tablet 00:00: MOUTH [place] 00 THREE Medical TIMES A Branch DAY WITH MEALS DICLOFENAC 2022-0 Yes [id number] TAKE 1 [facility] 50 mg EC 6-03 TABLET BY ity of tablet 00:00: MOUTH 00 THREE Medical TIMES A Branch DAY WITH MEALS DICLOFENAC 2022-0 Yes [id number] TAKE 1 [facility] 50 mg EC 6-03 TABLET BY ity of tablet 00:00: MOUTH [place] 00 THREE Medical TIMES A Branch DAY WITH MEALS DICLOFENAC 2022-0 Yes [id number] TAKE 1 [facility] 50 mg EC 6-03 TABLET BY ity of tablet 00:00: MOUTH 00 THREE Medical TIMES A Branch DAY WITH MEALS DICLOFENAC 2022-0 Yes [id number] TAKE 1 [facility] 50 mg EC 6-03 TABLET BY ity of tablet 00:00: MOUTH 00 THREE Medical TIMES A Branch DAY WITH MEALS DICLOFENAC 2022-0 Yes [id number] TAKE 1 [facility] 50 mg EC 6-03 TABLET BY ity of tablet 00:00: MOUTH 00 THREE Medical TIMES A Branch DAY WITH MEALS DICLOFENAC 2022-0 Yes [id number] TAKE 1 [facility] 50 mg EC 6-03 TABLET BY ity of tablet 00:00: MOUTH [place] 00 THREE Medical TIMES A Branch DAY WITH MEALS DICLOFENAC 2022-0 Yes [id number] TAKE 1 [facility] 50 mg EC 6-03 TABLET BY ity of tablet 00:00: MOUTH [place] 00 THREE Medical TIMES A Branch DAY WITH MEALS DICLOFENAC 2022-0 Yes [id number] TAKE 1 [facility] 50 mg EC 6-03 TABLET BY ity of tablet 00:00: MOUTH [place] 00 THREE Medical TIMES A Branch DAY WITH MEALS DICLOFENAC 2022-0 Yes [id number] TAKE 1 [facility] 50 mg EC 6-03 TABLET BY ity of tablet 00:00: [facility] 00 THREE Medical TIMES A Branch DAY WITH MEALS DICLOFENAC 2022-0 Yes [id number] TAKE 1 [facility] 50 mg EC 6-03 TABLET BY ity of tablet 00:00: [facility] 00 THREE Medical TIMES A Branch DAY WITH MEALS DICLOFENAC 2022-0 Yes [id number] TAKE 1 [facility] 50 mg EC 6-03 TABLET BY ity of tablet 00:00: [facility] THREE Medical TIMES A Branch DAY WITH MEALS DICLOFENAC 2022-0 Yes [id number] TAKE 1 [facility] 50 mg EC 6-03 TABLET BY ity of tablet 00:00: [facility] 00 THREE Medical TIMES A Branch DAY WITH MEALS DICLOFENAC 2022-0 Yes [id number] TAKE 1 [facility] 50 mg EC 6-03 TABLET BY ity of tablet 00:00: [facility] THREE Medical TIMES A Branch DAY WITH MEALS DICLOFENAC 2022-0 Yes [id number] TAKE 1 [facility] 50 mg EC 6-03 TABLET BY ity of tablet 00:00: [facility] THREE Medical TIMES A Branch DAY WITH MEALS DICLOFENAC 2022-0 Yes [id number] TAKE 1 [facility] 50 mg EC 6-03 TABLET BY ity of tablet 00:00: [facility] THREE Medical TIMES A Branch DAY WITH MEALS DICLOFENAC 2022-0 Yes [id number] TAKE 1 [facility] 50 mg EC 6-03 TABLET BY ity of tablet 00:00: [facility] 00 THREE Medical TIMES A Branch DAY WITH MEALS DICLOFENAC 2022-0 Yes [id number] TAKE 1 [facility] 50 mg EC 6-03 TABLET BY ity of tablet 00:00: [facility] THREE Medical TIMES A Branch DAY WITH MEALS DICLOFENAC 2022-0 Yes [id number] TAKE 1 [facility] 50 mg EC 6-03 TABLET BY ity of tablet 00:00: [facility] THREE Medical TIMES A Branch DAY WITH MEALS DICLOFENAC 2022-0 Yes [id number] TAKE 1 [facility] 50 mg EC 6-03 TABLET BY ity of tablet 00:00: [facility] 00 THREE Medical TIMES A Branch DAY WITH MEALS DICLOFENAC 2022-0 Yes [id number] TAKE 1 [facility] 50 mg EC 6-03 TABLET BY ity of tablet 00:00: [facility] 00 THREE Medical TIMES A Branch DAY WITH MEALS FLUTICASONE 2022-0 Yes [id number] SPRAY 2 [facility] PROPIONATE 5-31 SPRAYS ity of 50 00:00: INTO EACH [place] mcg/actuati 00 NOSTRIL Medic al on nasal EVERY DAY Branch spray FLUTICASONE Yes [id number] SPRAY 2 [facility] PROPIONATE 5-31 SPRAYS ity of 50 00:00: INTO EACH [place] mcg/actuati 00 NOSTRIL Medic al on nasal EVERY DAY Branch spray FLUTICASONE 2021- No [id number] SPRAY 2 [facility] PROPIONATE 5-31 06-27 SPRAYS ity of 50 00:00: 00:00 INTO EACH [place] mcg/actuati 00 :00 NOSTRIL Medic al on nasal EVERY DAY Branch spray FLUTICASONE Yes [id number] SPRAY 2 [facility] PROPIONATE 4-26 SPRAYS ity of 50 00:00: INTO EACH [place] mcg/actuati 00 NOSTRIL Medic al on nasal EVERY DAY Branch spray FLUTICASONE 2021- No [id number] SPRAY 2 [facility] PROPIONATE 4-26 05-31 SPRAYS ity of 50 00:00: 00:00 INTO EACH [place] mcg/actuati 00 :00 NOSTRIL Medic al on nasal EVERY DAY Branch spray venlafaxine Yes [id number] 150mg Take 1 [facility] XR 150 mg 4-04 capsule by ity of 24 hr 00:00: mouth [place] capsule 00 daily with Medica l breakfast. Branch levocetiriz Yes [id number] 5mg Take 1 [facility] ine 5 mg 4-04 tablet by ity of tablet 00:00: mouth [place] 00 every Medical evening. Branch Fenofibrate Yes [id number] 160mg Take 1 [facility] 160 mg 4-04 tablet by ity of tablet 00:00: mouth [place] 00 daily. Medical Branch estradioL 1 Yes [id number] 1mg Take 1 [facility] mg tablet 4-04 tablet by ity o f 00:00: mouth [place] 00 daily. Medical Branch atorvastati Yes [id number] 20mg Take 1 [facility] n 20 mg 4-04 tablet by ity of tablet 00:00: mouth at [place] 00 bedtime. Medical Branch diclofenac Yes [id number] 50mg Take 1 [facility] 50 mg EC 4-04 tablet by ity of tablet 00:00: mouth 3 [place] 00 (three) Medical times Branch daily with meals. venlafaxine Yes [id number] 150mg Take 1 [facility] XR 150 mg 4-04 capsule by ity of 24 hr 00:00: mouth [place] capsule 00 daily with Medica l breakfast. Branch levocetiriz Yes [id number] 5mg Take 1 [facility] ine 5 mg 4-04 tablet by ity of tablet 00:00: mouth [place] 00 every Medical evening. Branch Fenofibrate Yes [id number] 160mg Take 1 [facility] 160 mg 4-04 tablet by ity of tablet 00:00: mouth [place] 00 daily. Medical Branch estradioL 1 Yes [id number] 1mg Take 1 [facility] mg tablet 4-04 tablet by ity o f 00:00: mouth [place] 00 daily. Medical Branch atorvastati Yes [id number] 20mg Take 1 [facility] n 20 mg 4-04 tablet by ity of tablet 00:00: mouth at [place] 00 bedtime. Medical Branch diclofenac Yes [id number] 50mg Take 1 [facility] 50 mg EC 4-04 tablet by ity of tablet 00:00: mouth 3 00 (three) Medical times Branch daily with meals. venlafaxine Yes [id number] 150mg Take 1 [facility] XR 150 mg 4-04 capsule by ity of 24 hr 00:00: mouth [place] capsule 00 daily with Medica l breakfast. Branch levocetiriz Yes [id number] 5mg Take 1 [facility] ine 5 mg 4-04 tablet by ity of tablet 00:00: mouth [place] 00 every Medical evening. Branch Fenofibrate Yes [id number] 160mg Take 1 [facility] 160 mg 4-04 tablet by ity of tablet 00:00: mouth [place] 00 daily. Medical Branch estradioL 1 Yes [id number] 1mg Take 1 [facility] mg tablet 4-04 tablet by ity o f 00:00: mouth [place] 00 daily. Medical Branch atorvastati Yes [id number] 20mg Take 1 [facility] n 20 mg 4-04 tablet by ity of tablet 00:00: mouth at [place] 00 bedtime. Medical Branch diclofenac Yes [id number] 50mg Take 1 [facility] 50 mg EC 4-04 tablet by ity of tablet 00:00: mouth 3 [place] 00 (three) Medical times Branch daily with meals. venlafaxine Yes [id number] 150mg Take 1 [facility] XR 150 mg 4-04 capsule by ity of 24 hr 00:00: mouth [place] capsule 00 daily with Medica l breakfast. Branch levocetiriz Yes [id number] 5mg Take 1 [facility] ine 5 mg 4-04 tablet by ity of tablet 00:00: mouth [place] 00 every Medical evening. Branch Fenofibrate Yes [id number] 160mg Take 1 [facility] 160 mg 4-04 tablet by ity of tablet 00:00: mouth [place] 00 daily. Medical Branch estradioL 1 Yes [id number] 1mg Take 1 [facility] mg tablet 4-04 tablet by ity o f 00:00: mouth [place] 00 daily. Medical Branch atorvastati Yes [id number] 20mg Take 1 [facility] n 20 mg 4-04 tablet by ity of tablet 00:00: mouth at [place] 00 bedtime. Medical Branch venlafaxine Yes [id number] 150mg Take 1 [facility] XR 150 mg 4-04 capsule by ity of 24 hr 00:00: mouth [place] capsule 00 daily with Medica l breakfast. Branch levocetiriz Yes [id number] 5mg Take 1 [facility] ine 5 mg 4-04 tablet by ity of tablet 00:00: mouth [place] 00 every Medical evening. Branch Fenofibrate Yes [id number] 160mg Take 1 [facility] 160 mg 4-04 tablet by ity of tablet 00:00: mouth [place] 00 daily. Medical Branch estradioL 1 Yes [id number] 1mg Take 1 [facility] mg tablet 4-04 tablet by ity o f 00:00: mouth [place] 00 daily. Medical Branch atorvastati Yes [id number] 20mg Take 1 [facility] n 20 mg 4-04 tablet by ity of tablet 00:00: mouth at [place] 00 bedtime. Medical Branch levocetiriz Yes [id number] 5mg Take 1 [facility] ine 5 mg 4-04 tablet by ity of tablet 00:00: mouth [place] 00 every Medical evening. Branch Fenofibrate Yes [id number] 160mg Take 1 [facility] 160 mg 4-04 tablet by ity of tablet 00:00: mouth [place] 00 daily. Medical Branch estradioL 1 Yes [id number] 1mg Take 1 [facility] mg tablet 4-04 tablet by ity o f 00:00: mouth [place] 00 daily. Medical Branch atorvastati Yes [id number] 20mg Take 1 [facility] n 20 mg 4-04 tablet by ity of tablet 00:00: mouth at [place] 00 bedtime. Medical Branch levocetiriz Yes [id number] 5mg Take 1 [facility] ine 5 mg 4-04 tablet by ity of tablet 00:00: mouth [place] 00 every Medical evening. Branch Fenofibrate Yes [id number] 160mg Take 1 [facility] 160 mg 4-04 tablet by ity of tablet 00:00: mouth [place] 00 daily. Medical Branch estradioL 1 Yes [id number] 1mg Take 1 [facility] mg tablet 4-04 tablet by ity o f 00:00: mouth [place] 00 daily. Medical Branch atorvastati Yes [id number] 20mg Take 1 [facility] n 20 mg 4-04 tablet by ity of tablet 00:00: mouth at [place] 00 bedtime. Medical Branch Fenofibrate Yes [id number] 160mg Take 1 [facility] 160 mg 4-04 tablet by ity of tablet 00:00: mouth [place] 00 daily. Medical Branch estradioL 1 Yes [id number] 1mg Take 1 [facility] mg tablet 4-04 tablet by ity o f 00:00: mouth [place] 00 daily. Medical Branch atorvastati Yes [id number] 20mg Take 1 [facility] n 20 mg 4-04 tablet by ity of tablet 00:00: mouth at [place] 00 bedtime. Medical Branch Fenofibrate Yes [id number] 160mg Take 1 [facility] 160 mg 4-04 tablet by ity of tablet 00:00: mouth [place] 00 daily. Medical Branch estradioL 1 Yes [id number] 1mg Take 1 [facility] mg tablet 4-04 tablet by ity o f 00:00: mouth [place] 00 daily. Medical Branch atorvastati Yes [id number] 20mg Take 1 [facility] n 20 mg 4-04 tablet by ity of tablet 00:00: mouth at [place] 00 bedtime. Medical Branch Fenofibrate Yes [id number] 160mg Take 1 [facility] 160 mg 4-04 tablet by ity of tablet 00:00: mouth [place] 00 daily. Medical Branch estradioL 1 Yes [id number] 1mg Take 1 [facility] mg tablet 4-04 tablet by ity o f 00:00: mouth [place] 00 daily. Medical Branch atorvastati Yes [id number] 20mg Take 1 [facility] n 20 mg 4-04 tablet by ity of tablet 00:00: mouth at [place] 00 bedtime. Medical Branch Fenofibrate Yes [id number] 160mg Take 1 [facility] 160 mg 4-04 tablet by ity of tablet 00:00: mouth [place] 00 daily. Medical Branch estradioL 1 Yes [id number] 1mg Take 1 [facility] mg tablet 4-04 tablet by ity o f 00:00: mouth [place] 00 daily. Medical Branch atorvastati Yes [id number] 20mg Take 1 [facility] n 20 mg 4-04 tablet by ity of tablet 00:00: mouth at [place] 00 bedtime. Medical Branch Fenofibrate Yes [id number] 160mg Take 1 [facility] 160 mg 4-04 tablet by ity of tablet 00:00: mouth [place] 00 daily. Medical Branch estradioL 1 0 Yes [id number] 1mg Take 1 [facility] mg tablet 4-04 tablet by ity o f 00:00: mouth [place] 00 daily. Medical Branch Fenofibrate 0 Yes [id number] 160mg Take 1 [facility] 160 mg 4-04 tablet by ity of tablet 00:00: mouth [place] 00 daily. Medical Branch estradioL 1 Yes [id number] 1mg Take 1 [facility] mg tablet 4-04 tablet by ity o f 00:00: mouth [place] 00 daily. Medical Branch Fenofibrate 0 Yes [id number] 160mg Take 1 [facility] 160 mg 4-04 tablet by ity of tablet 00:00: mouth [place] 00 daily. [facility] Fenofibrate 0 Yes [id number] 160mg Take 1 [facility] 160 mg 4-04 tablet by ity of tablet 00:00: mouth [place] 00 daily. Medical Branch Fenofibrate 0 Yes [id number] 160mg Take 1 [facility] 160 mg 4-04 tablet by ity of tablet 00:00: mouth [place] 00 daily. Medical [facility] Fenofibrate 2021- No [id number] 160mg Take 1 [facility] 160 mg 4-04 12-12 tablet by ity of tablet 00:00: 00:00 mouth [place] 00 :00 daily. Medical Branch estradioL 1 2021- No [id number] 1mg Take 1 [facility] mg tablet 07-02 tablet by ity of 00:00: 00:00 mouth [place] 00 :00 daily. Medical Branch atorvastati 2021- No [id number] 20mg Take 1 [facility] n 20 mg 07-02 tablet by ity of tablet 00:00: 00:00 mouth at [place] 00 :00 bedtime. Medical Branch levocetiriz 2021- No [id number] 5mg Take 1 [facility] ine 5 mg 07-02 tablet by ity o f tablet 00:00: 00:00 mouth [place] 00 :00 every Medical evening. Branch venlafaxine 2021- No [id number] 150mg Take 1 [facility] XR 150 mg 07-02 capsule by ity of 24 hr 00:00: 00:00 mouth [place] capsule 00 :00 daily with Medica l breakfast. Branch diclofenac 2021- No [id number] 50mg Take 1 [facility] 50 mg EC 07-02 tablet by ity o f tablet 00:00: 00:00 mouth 3 [place] 00 :00 (three) Medical times Branch daily with meals. ESTRADIOL 1 2021- No [id number] TAKE 1 [facility] mg tablet 06-08 TABLET BY ity of 00:00: 00:00 MOUTH [place] 00 :00 EVERY DAY Medical Branch LEVOCETIRIZ 2021- No [id number] TAKE 1 Univers INE 5 mg 06-06 TABLET BY ity o f tablet 00:00: 00:00 MOUTH [place] 00 :00 EVERY DAY Medical IN THE Branch EVENING FLUTICASONE Yes [id number] SPRAY 2 Univers PROPIONATE 3-07 SPRAYS ity of 50 00:00: INTO EACH [place] mcg/actuati 00 NOSTRIL Medic al on nasal EVERY DAY Branch spray FLUTICASONE 2021- No [id number] SPRAY 2 Univers PROPIONATE 3- SPRAYS ity of 50 00:00: 00:00 INTO EACH [place] mcg/actuati 00 :00 NOSTRIL Medic al on nasal EVERY DAY Branch spray FENOFIBRATE 2020-03- No [id number] TAKE 1 [facility] 160 mg 2-15 - TABLET BY ity of tablet 00:00: 00:00 MOUTH [place] 00 :00 EVERY DAY Medical Branch ATORVASTATI 2020-03- No [id number] TAKE 1 Univers N 20 mg 04-28- TABLET BY ity of tablet 00:00: 00:00 MOUTH [place] 00 :00 EVERYDAY Medical AT BEDTIME Branch VENLAFAXINE 2020-03- No [id number] 150mg TAKE 1 Univers XR 150 mg 0-28 - CAPSULE BY ity of 24 hr 00:00: 00:00 MOUTH [place] capsule 00 :00 DAILY WITH Medica l BREAKFAST. Branch sulfamethox 2019-03- No [id number] 1{tbl} Take 1 Univers azole-trime 2-17 - tablet by it y of thoprim 00:00: 00:00 mouth 2 [place] (BACTRIM 00 :00 (two) Medical DS) 800-160 times Branch mg per daily. tablet azithromyci 2018-03- No [id number] 250mg Take 1 Univers n 250 mg 04-11 tablet by ity o f tablet 00:00: 00:00 mouth [place] 00 :00 SEE-INSTRU Medical CTIONS. Branch Take 500 mg day 1, then 250 mg days 2 to 5. Immunizations Ordered Filled Immunization Date Status Comments [facility] e Immunization Name Name SARS-COV-2 COVID-19 2020-12-26 Completed Unive rsity of PFIZER VACCINE 00:00:00 [facility] SARS-COV-2 COVID-19 2020-12-26 Completed Unive rsity of PFIZER VACCINE 00:00:00 [facility] SARS-COV-2 COVID-19 2020-12-26 Completed Unive rsity of PFIZER VACCINE 00:00:00 [facility] SARS-COV-2 COVID-19 2020-12-26 Completed Unive rsity of PFIZER VACCINE 00:00:00 [facility] SARS-COV-2 COVID-19 2020-12-26 Completed Unive rsity of PFIZER VACCINE 00:00:00 [facility] SARS-COV-2 COVID-19 2020-12-26 Completed Unive rsity of PFIZER VACCINE 00:00:00 [facility] SARS-COV-2 COVID-19 2020-12-26 Completed Unive rsity of PFIZER VACCINE 00:00:00 [facility] SARS-COV-2 COVID-19 2020-12-26 Completed Unive rsity of PFIZER VACCINE 00:00:00 [facility] SARS-COV-2 COVID-19 2020-12-26 Completed Unive rsity of PFIZER VACCINE 00:00:00 [facility] SARS-COV-2 COVID-19 2020-12-26 Completed Unive rsity of PFIZER VACCINE 00:00:00 [facility] SARS-COV-2 COVID-19 2020-12-26 Completed Unive rsity of PFIZER VACCINE 00:00:00 [facility] SARS-COV-2 COVID-19 2020-12-26 Completed Unive rsity of PFIZER VACCINE 00:00:00 [facility] SARS-COV-2 COVID-19 2020-12-26 Completed Unive rsity of PFIZER VACCINE 00:00:00 [facility] SARS-COV-2 COVID-19 2020-12-26 Completed Unive rsity of PFIZER VACCINE 00:00:00 [facility] SARS-COV-2 COVID-19 2020-12-26 Completed Unive rsity of PFIZER VACCINE 00:00:00 [facility] SARS-COV-2 COVID-19 2020-12-26 Completed Unive rsity of PFIZER VACCINE 00:00:00 [facility] SARS-COV-2 COVID-19 2020-12-26 Completed Unive rsity of PFIZER VACCINE 00:00:00 [facility] SARS-COV-2 COVID-19 2020-12-26 Completed Unive rsity of PFIZER VACCINE 00:00:00 [facility] SARS-COV-2 COVID-19 2020-12-26 Completed Unive rsity of PFIZER VACCINE 00:00:00 [facility] SARS-COV-2 COVID-19 2020-12-26 Completed Unive rsity of PFIZER VACCINE 00:00:00 [facility] SARS-COV-2 COVID-19 2020-12-26 Completed Unive rsity of PFIZER VACCINE 00:00:00 [facility] SARS-COV-2 COVID-19 2020-12-26 Completed Unive rsity of PFIZER VACCINE 00:00:00 [place] [facility] SARS-COV-2 COVID-19 2020-12-26 Completed Unive rsity of PFIZER VACCINE 00:00:00 [facility] SARS-COV-2 COVID-19 2020-12-26 Completed Unive rsity of PFIZER VACCINE 00:00:00 [facility] SARS-COV-2 COVID-19 2020-12-26 Completed Unive rsity of PFIZER VACCINE 00:00:00 [facility] SARS-COV-2 COVID-19 2020-12-26 Completed Unive rsity of PFIZER VACCINE 00:00:00 [facility] SARS-COV-2 COVID-19 2020-12-26 Completed Unive rsity of PFIZER VACCINE 00:00:00 [facility] SARS-COV-2 COVID-19 2020-12-26 Completed Unive rsity of PFIZER VACCINE 00:00:00 [facility] SARS-COV-2 COVID-19 2020-12-26 Completed Unive rsity of PFIZER VACCINE 00:00:00 [facility] SARS-COV-2 COVID-19 2020-12-26 Completed Unive rsity of PFIZER VACCINE 00:00:00 [facility] SARS-COV-2 COVID-19 2020-12-26 Completed Unive rsity of PFIZER VACCINE 00:00:00 [facility] SARS-COV-2 COVID-19 2020-12-26 Completed Unive rsity of PFIZER VACCINE 00:00:00 [facility] SARS-COV-2 COVID-19 2020-12-26 Completed Unive rsity of PFIZER VACCINE 00:00:00 [facility] SARS-COV-2 COVID-19 2020-12-26 Completed Unive rsity of PFIZER VACCINE 00:00:00 [facility] SARS-COV-2 COVID-19 2020-12-26 Completed Unive rsity of PFIZER VACCINE 00:00:00 [facility] SARS-COV-2 COVID-19 2020-12-26 Completed Unive rsity of PFIZER VACCINE 00:00:00 [facility] SARS-COV-2 COVID-19 2020-12-26 Completed Unive rsity of PFIZER VACCINE 00:00:00 [facility] SARS-COV-2 COVID-19 2020-12-26 Completed Unive rsity of PFIZER VACCINE 00:00:00 [facility] Influenza High Dose 2020-11-29 Completed Unive rsity of [place] 00:00:00 [facility] Influenza High Dose 2020-11-29 Completed Unive rsity of [facility] 00:00:00 [facility] Influenza High Dose 2020-11-29 Completed Unive rsity of [facility] 00:00:00 [facility] Influenza High Dose 2020-11-29 Completed Unive rsity of [facility] 00:00:00 [facility] Influenza High Dose 2020-11-29 Completed Unive rsity of [facility] 00:00:00 [facility] Influenza High Dose 2020-11-29 Completed Unive rsity of [facility] 00:00:00 [facility] Influenza High Dose 2020-11-29 Completed Unive rsity of [facility] 00:00:00 [facility] Influenza High Dose 2020-11-29 Completed Unive rsity of [facility] 00:00:00 [facility] Influenza High Dose 2020-11-29 Completed Unive rsity of [facility] 00:00:00 [facility] Influenza High Dose 2020-11-29 Completed Unive rsity of [facility] 00:00:00 [facility] Influenza High Dose 2020-11-29 Completed Unive rsity of [facility] 00:00:00 [facility] Influenza High Dose 2020-11-29 Completed Unive rsity of [facility] 00:00:00 [facility] Influenza High Dose 2020-11-29 Completed Unive rsity of [facility] 00:00:00 [facility] Influenza High Dose 2020-11-29 Completed Unive rsity of [facility] 00:00:00 [facility] Influenza High Dose 2020-11-29 Completed Unive rsity of [facility] 00:00:00 [facility] Influenza High Dose 2020-11-29 Completed Unive rsity of [facility] 00:00:00 [facility] Influenza High Dose 2020-11-29 Completed Unive rsity of [facility] 00:00:00 [facility] Influenza High Dose 2020-11-29 Completed Unive rsity of [facility] 00:00:00 [facility] Influenza High Dose 2020-11-29 Completed Unive rsity of [facility] 00:00:00 [facility] Influenza High Dose 2020-11-29 Completed Unive rsity of Quad 00:00:00 [place] [facility] Influenza High Dose 2020-11-29 Completed Unive rsity of Quad 00:00:00 [facility] Influenza High Dose 2020-11-29 Completed Unive rsity of [facility] 00:00:00 [place] [facility] Influenza High Dose 2020-11-29 Completed Unive rsity of Quad 00:00:00 [facility] Influenza High Dose 2020-11-29 Completed Unive rsity of [facility] 00:00:00 [facility] Influenza High Dose 2020-11-29 Completed Unive rsity of [place] 00:00:00 [place] [facility] Influenza High Dose 2020-11-29 Completed Unive rsity of Quad 00:00:00 [facility] Influenza High Dose 2020-11-29 Completed Unive rsity of [facility] 00:00:00 [facility] Influenza High Dose 2020-11-29 Completed Unive rsity of [place] 00:00:00 [facility] Influenza High Dose 2020-11-29 Completed Unive rsity of [place] 00:00:00 [facility] Influenza High Dose 2020-11-29 Completed Unive rsity of [facility] 00:00:00 [facility] Influenza High Dose 2020-11-29 Completed Unive rsity of [facility] 00:00:00 [facility] Influenza High Dose 2020-11-29 Completed Unive rsity of [facility] 00:00:00 [facility] Influenza High Dose 2020-11-29 Completed Unive rsity of [facility] 00:00:00 [facility] Influenza High Dose 2020-11-29 Completed Unive rsity of [facility] 00:00:00 [facility] Influenza High Dose 2020-11-29 Completed Unive rsity of [facility] 00:00:00 [facility] Influenza High Dose 2020-11-29 Completed Unive rsity of Quad 00:00:00 [facility] Influenza High Dose 2020-11-29 Completed Unive rsity of [facility] 00:00:00 [facility] Influenza High Dose 2020-11-29 Completed Unive rsity of Quad 00:00:00 [facility] SARS-COV-2 COVID-19 2020-05-10 Completed Unive rsity of PFIZER VACCINE 00:00:00 [facility] SARS-COV-2 COVID-19 2020-05-10 Completed Unive rsity of PFIZER VACCINE 00:00:00 [facility] SARS-COV-2 COVID-19 2020-05-10 Completed Unive rsity of PFIZER VACCINE 00:00:00 [facility] SARS-COV-2 COVID-19 2020-05-10 Completed Unive rsity of PFIZER VACCINE 00:00:00 [facility] SARS-COV-2 COVID-19 2020-05-10 Completed Unive rsity of PFIZER VACCINE 00:00:00 [facility] SARS-COV-2 COVID-19 2020-05-10 Completed Unive rsity of PFIZER VACCINE 00:00:00 [facility] SARS-COV-2 COVID-19 2020-05-10 Completed Unive rsity of PFIZER VACCINE 00:00:00 [facility] SARS-COV-2 COVID-19 2020-05-10 Completed Unive rsity of PFIZER VACCINE 00:00:00 [facility] SARS-COV-2 COVID-19 2020-05-10 Completed Unive rsity of PFIZER VACCINE 00:00:00 [facility] SARS-COV-2 COVID-19 2020-05-10 Completed Unive rsity of PFIZER VACCINE 00:00:00 [facility] SARS-COV-2 COVID-19 2020-05-10 Completed Unive rsity of PFIZER VACCINE 00:00:00 [facility] SARS-COV-2 COVID-19 2020-05-10 Completed Unive rsity of PFIZER VACCINE 00:00:00 [facility] SARS-COV-2 COVID-19 2020-05-10 Completed Unive rsity of PFIZER VACCINE 00:00:00 [facility] SARS-COV-2 COVID-19 2020-05-10 Completed Unive rsity of PFIZER VACCINE 00:00:00 [facility] SARS-COV-2 COVID-19 2020-05-10 Completed Unive rsity of PFIZER VACCINE 00:00:00 [facility] SARS-COV-2 COVID-19 2020-05-10 Completed Unive rsity of PFIZER VACCINE 00:00:00 [facility] SARS-COV-2 COVID-19 2020-05-10 Completed Unive rsity of PFIZER VACCINE 00:00:00 [facility] SARS-COV-2 COVID-19 2020-05-10 Completed Unive rsity of PFIZER VACCINE 00:00:00 [facility] SARS-COV-2 COVID-19 2020-05-10 Completed Unive rsity of PFIZER VACCINE 00:00:00 [facility] SARS-COV-2 COVID-19 2020-05-10 Completed Unive rsity of PFIZER VACCINE 00:00:00 [facility] SARS-COV-2 COVID-19 2020-05-10 Completed Unive rsity of PFIZER VACCINE 00:00:00 [facility] SARS-COV-2 COVID-19 2020-05-10 Completed Unive rsity of PFIZER VACCINE 00:00:00 [facility] SARS-COV-2 COVID-19 2020-05-10 Completed Unive rsity of PFIZER VACCINE 00:00:00 [facility] SARS-COV-2 COVID-19 2020-05-10 Completed Unive rsity of PFIZER VACCINE 00:00:00 [facility] SARS-COV-2 COVID-19 2020-05-10 Completed Unive rsity of PFIZER VACCINE 00:00:00 [facility] SARS-COV-2 COVID-19 2020-05-10 Completed Unive rsity of PFIZER VACCINE 00:00:00 [facility] SARS-COV-2 COVID-19 2020-05-10 Completed Unive rsity of PFIZER VACCINE 00:00:00 [facility] SARS-COV-2 COVID-19 2020-05-10 Completed Unive rsity of PFIZER VACCINE 00:00:00 [facility] SARS-COV-2 COVID-19 2020-05-10 Completed Unive rsity of PFIZER VACCINE 00:00:00 [facility] SARS-COV-2 COVID-19 2020-05-10 Completed Unive rsity of PFIZER VACCINE 00:00:00 [facility] SARS-COV-2 COVID-19 2020-05-10 Completed Unive rsity of PFIZER VACCINE 00:00:00 [facility] SARS-COV-2 COVID-19 2020-05-10 Completed Unive rsity of PFIZER VACCINE 00:00:00 [facility] SARS-COV-2 COVID-19 2020-05-10 Completed Unive rsity of PFIZER VACCINE 00:00:00 [facility] SARS-COV-2 COVID-19 2020-05-10 Completed Unive rsity of PFIZER VACCINE 00:00:00 [facility] SARS-COV-2 COVID-19 2020-05-10 Completed Unive rsity of PFIZER VACCINE 00:00:00 [facility] SARS-COV-2 COVID-19 2020-05-10 Completed Unive rsity of PFIZER VACCINE 00:00:00 [facility] SARS-COV-2 COVID-19 2020-05-10 Completed Unive rsity of PFIZER VACCINE 00:00:00 [facility] SARS-COV-2 COVID-19 2020-05-10 Completed Unive rsity of PFIZER VACCINE 00:00:00 [facility] SARS-COV-2 COVID-19 2020-04-19 Completed Unive rsity of PFIZER VACCINE 00:00:00 [facility] SARS-COV-2 COVID-19 2020-04-19 Completed Unive rsity of PFIZER VACCINE 00:00:00 [facility] SARS-COV-2 COVID-19 2020-04-19 Completed Unive rsity of PFIZER VACCINE 00:00:00 [facility] SARS-COV-2 COVID-19 2020-04-19 Completed Unive rsity of PFIZER VACCINE 00:00:00 [facility] SARS-COV-2 COVID-19 2020-04-19 Completed Unive rsity of PFIZER VACCINE 00:00:00 [facility] SARS-COV-2 COVID-19 2020-04-19 Completed Unive rsity of PFIZER VACCINE 00:00:00 [facility] SARS-COV-2 COVID-19 2020-04-19 Completed Unive rsity of PFIZER VACCINE 00:00:00 [facility] SARS-COV-2 COVID-19 2020-04-19 Completed Unive rsity of PFIZER VACCINE 00:00:00 [facility] SARS-COV-2 COVID-19 2020-04-19 Completed Unive rsity of PFIZER VACCINE 00:00:00 [facility] SARS-COV-2 COVID-19 2020-04-19 Completed Unive rsity of PFIZER VACCINE 00:00:00 [facility] SARS-COV-2 COVID-19 2020-04-19 Completed Unive rsity of PFIZER VACCINE 00:00:00 [place] [facility] SARS-COV-2 COVID-19 2020-04-19 Completed Unive rsity of PFIZER VACCINE 00:00:00 [facility] SARS-COV-2 COVID-19 2020-04-19 Completed Unive rsity of PFIZER VACCINE 00:00:00 [facility] SARS-COV-2 COVID-19 2020-04-19 Completed Unive rsity of PFIZER VACCINE 00:00:00 [facility] SARS-COV-2 COVID-19 2020-04-19 Completed Unive rsity of PFIZER VACCINE 00:00:00 [facility] SARS-COV-2 COVID-19 2020-04-19 Completed Unive rsity of PFIZER VACCINE 00:00:00 [facility] SARS-COV-2 COVID-19 2020-04-19 Completed Unive rsity of PFIZER VACCINE 00:00:00 [facility] SARS-COV-2 COVID-19 2020-04-19 Completed Unive rsity of PFIZER VACCINE 00:00:00 [facility] SARS-COV-2 COVID-19 2020-04-19 Completed Unive rsity of PFIZER VACCINE 00:00:00 [facility] SARS-COV-2 COVID-19 2020-04-19 Completed Unive rsity of PFIZER VACCINE 00:00:00 [facility] SARS-COV-2 COVID-19 2020-04-19 Completed Unive rsity of PFIZER VACCINE 00:00:00 [facility] SARS-COV-2 COVID-19 2020-04-19 Completed Unive rsity of PFIZER VACCINE 00:00:00 [facility] SARS-COV-2 COVID-19 2020-04-19 Completed Unive rsity of PFIZER VACCINE 00:00:00 [facility] SARS-COV-2 COVID-19 2020-04-19 Completed Unive rsity of PFIZER VACCINE 00:00:00 [facility] SARS-COV-2 COVID-19 2020-04-19 Completed Unive rsity of PFIZER VACCINE 00:00:00 [facility] SARS-COV-2 COVID-19 2020-04-19 Completed Unive rsity of PFIZER VACCINE 00:00:00 [facility] SARS-COV-2 COVID-19 2020-04-19 Completed Unive rsity of PFIZER VACCINE 00:00:00 [facility] SARS-COV-2 COVID-19 2020-04-19 Completed Unive rsity of PFIZER VACCINE 00:00:00 [facility] SARS-COV-2 COVID-19 2020-04-19 Completed Unive rsity of PFIZER VACCINE 00:00:00 [facility] SARS-COV-2 COVID-19 2020-04-19 Completed Unive rsity of PFIZER VACCINE 00:00:00 [facility] SARS-COV-2 COVID-19 2020-04-19 Completed Unive rsity of PFIZER VACCINE 00:00:00 [facility] SARS-COV-2 COVID-19 2020-04-19 Completed Unive rsity of PFIZER VACCINE 00:00:00 [facility] SARS-COV-2 COVID-19 2020-04-19 Completed Unive rsity of PFIZER VACCINE 00:00:00 [facility] SARS-COV-2 COVID-19 2020-04-19 Completed Unive rsity of PFIZER VACCINE 00:00:00 [facility] SARS-COV-2 COVID-19 2020-04-19 Completed Unive rsity of PFIZER VACCINE 00:00:00 [facility] SARS-COV-2 COVID-19 2020-04-19 Completed Unive rsity of PFIZER VACCINE 00:00:00 [facility] SARS-COV-2 COVID-19 2020-04-19 Completed Unive rsity of PFIZER VACCINE 00:00:00 [facility] SARS-COV-2 COVID-19 2020-04-19 Completed Unive rsity of PFIZER VACCINE 00:00:00 [facility] TDAP 2017-12-05 Completed University of 00:00:00 [facility] TDAP 2017-12-05 Completed University of 00:00:00 [facility] TDAP 2017-12-05 Completed University of 00:00:00 [facility] TDAP 2017-12-05 Completed University of 00:00:00 [facility] TDAP 2017-12-05 Completed University of 00:00:00 [facility] TDAP 2017-12-05 Completed University of 00:00:00 [facility] TDAP 2017-12-05 Completed University of 00[facility]00:00 [facility] TDAP 2017-12-05 Completed University of 00:00:00 [facility] TDAP 2017-12-05 Completed University of 00:00:00 [facility] TDAP 2017-12-05 Completed University of 00:00:00 [facility] TDAP 2017-12-05 Completed University of 00:00:00 [facility] TDAP 2017-12-05 Completed University of 00:00:00 [facility] TDAP 2017-12-05 Completed University of 00:00:00 [facility] TDAP 2017-12-05 Completed University of 00:00:00 [facility] TDAP 2017-12-05 Completed University of 00:00:00 [facility] TDAP 2017-12-05 Completed University of 00:00:00 [facility] TDAP 2017-12-05 Completed University of 00:00:00 [facility] TDAP 2017-12-05 Completed University of 00:00:00 [facility] TDAP 2017-12-05 Completed University of 00:00:00 [facility] TDAP 2017-12-05 Completed University of 00:00:00 [facility] TDAP 2017-12-05 Completed University of 00:00:00 [facility] TDAP 2017-12-05 Completed University of 00:00:00 [facility] TDAP 2017-12-05 Completed University of 00:00:00 [facility] TDAP 2017-12-05 Completed University of 00:00:00 [facility] TDAP 2017-12-05 Completed University of 00:00:00 [facility] TDAP 2017-12-05 Completed University of 00:00:00 [facility] TDAP 2017-12-05 Completed University of 00:00:00 [facility] TDAP 2017-12-05 Completed University of 00:00:00 [facility] TDAP 2017-12-05 Completed University of 00:00:00 [facility] TDAP 2017-12-05 Completed University of 00:00:00 [facility] TDAP 2017-12-05 Completed [facility] 00:00:00 [facility] TDAP 2017-12-05 Completed [facility] of 00:00:00 [facility] TDAP 2017-12-05 Completed [facility] of 00:00:00 [facility] TDAP 2017-12-05 Completed University of 00:00:00 [facility] TDAP 2017-12-05 Completed University of 00:00:00 [facility] TDAP 2017-12-05 Completed University of 00:00:00 [facility] TDAP 2017-12-05 Completed University of 00:00:00 [facility] TDAP 2017-12-05 Completed University of 00:00:00 [facility] Vital Signs Vital Name Observation Time Observation Value Comments Source Systolic blood 2022-09-04 14:55:00 139 mm[Hg] Univer sity of pressure [facility] Diastolic blood 2022-09-04 14:55:00 80 mm[Hg] Unive rsity of pressure [facility] Heart rate 2022-09-04 14:54:00 67 /min Universi ty of [facility] Body temperature 2022-09-04 14:54:00 36.17 Kim Univ ersity of [facility] Respiratory rate 2022-09-04 14:54:00 18 /min Univ ersity of [facility] Body height 2022-09-04 14:54:00 162.6 cm [facility] [place] [facility] [place] Body weight 2022-09-04 14:54:00 64.456 kg [facility] BMI 2022-09-04 14:54:00 24.39 kg/m2 [facility] Oxygen saturation in 2022-09-04 14:54:00 98 /min [facility] Arterial blood by [facility] Pulse oximetry Branch Systolic blood 2021-07-02 15:19:00 148 mm[Hg] Univer sity of pressure [facility] Diastolic blood 2021-07-02 15:19:00 79 mm[Hg] Unive rsity of pressure [facility] Heart rate 2021-07-02 15:12:00 54 /min [facility] Body height 2021-07-02 15:12:00 162.6 cm [facility] Body weight 2021-07-02 15:12:00 66.679 kg [facility] BMI 2021-07-02 15:12:00 25.23 kg/m2 Universi ty of [facility] Procedures Procedure Date / Time Performed Performing Clinician Sour e EXTERNAL PROVIDER 2022-02-08 06:01:00 Doctor Unassigned, No Univ [facility] RECORDS Name Medical Branch Encounters Start End Encounter Admission Attending Care Care Encounter Source Date/Time Date/Time Type Type Clinicians Facility Department ID 2022-11-12 2022-11-12 [facility] 1.2.840.114 [id number] Univers 00:00:00 00:00:00 [facility] 350.1.13.10 it y of [place] 4.2.7.2.686 Gilles as ALMA?BLEA [phone] [facility] [address] MEDICAL OFFICE [facility] 2022-09-17 2022-09-17 [facility] 1.2.840.114 [id number] Univers 00:00:00 00:00:00 [facility] 350.1.13.10 it y of [place] 4.2.7.2.686 Gilles as ALMA?BLEA [phone] [address] OFFICE [facility] 2022-09-17 2022-09-17 [facility] 1.2.840.114 [id number] Univers 00:00:00 00:00:00 [facility] 350.1.13.10 it y of [place] 4.2.7.2.686 Gilles as ALMA?BLEA [phone] [address] OFFICE [facility] 2022-09-04 2022-09-04 Psychiatry Teacher Lab, Ang - [facility] 1.2.840.1 14 [id number] Univers 10:15:00 10:30:00 Visit Kiersten [facility] 350.1.13.10 [facility] 4.2.7.2.686 Gilles as ALMA?BLEA [phone] [facility] [address] [facility] OFFICE [facility] 2022-09-04 2022-09-04 [facility] [id number] Univers 10:00:00 10:16:11 KIKO ity [facility] 2022-09-04 2022-09-04 Office [facility] 1.2.840.114 [id number] Univers 10:00:00 10:15:00 Visit [place] 16353.1.13.10 it y of [place] 4.2.7.2.686 Gilles as ALMA?BLEA [phone] [address] OFFICE [facility] 2022-09-04 2022-09-04 [facility] 1.2.840.114 [id number] Univers 00:00:00 00:00:00 [facility] 350.1.13.10 it y of [place] 4.2.7.2.686 Gilles as ALMA?BLEA [phone] [address] OFFICE [facility] 2022-09-04 2022-09-04 [facility] 1.2.840.114 [id number] Univers 00:00:00 00:00:00 [facility] 350.1.13.10 it y of [place] 4.2.7.2.686 Gilles as ALMA?BLEA [phone] [address] 2022-08-21 2022-08-21 [facility] 1.2.840.114 [id number] Univers 00:00:00 00:00:00 [facility] 350.1.13.10 it y of [place] 4.2.7.2.686 Gilles as ALMA?BLEA [id number] [address] 2022-08-21 2022-08-21 [facility] 1.2.840.114 [id number] Univers 00:00:00 00:00:00 Jb HEALTH 350.1.13.10 it y of [place] 4.2.7.2.686 Gilles as ALMA?BLEA [phone] [address] 2022-08-17 2022-08-17 [facility] 1.2.840.114 [id number] Univers 00:00:00 00:00:00 [facility] 350.1.13.10 it y of [place] 4.2.7.2.686 Gilles as ALMA?BLEA [id number] [address] 2022-07-27 2022-07-27 [facility] 1.2.840.114 [id number] Univers 00:00:00 00:00:00 [facility] 350.1.13.10 it y of [place] 4.2.7.2.686 Gilles as ALMA?BLEA [phone] Fl kristopher CARLIN [address] [place] [address] OFFICE [facility] 2022-07-17 2022-07-17 [facility] 1.2.840.114 [id number] Univers 00:00:00 00:00:00 [facility] 350.1.13.10 it y of [place] 4.2.7.2.686 Gilles as ALMA?BLEA [phone] Fl kristopher CARLIN [address] [place] [address] OFFICE [facility] 2022-06-18 2022-06-18 [facility] 1.2.840.114 [id number] Univers 00:00:00 00:00:00 [facility] 350.1.13.10 it y of [place] 4.2.7.2.686 Gilles as ALMA?BLEA [id number] [facility] [address] OFFICE [facility] 2022-06-17 2022-06-17 [place] [facility] 1.2.921.899 [id number] Univers 00:00:00 00:00:00 [facility] 350.1.13.10 it y of [place] 4.2.7.2.686 Gilles as ALMA?BLEA [id number] [facility] [address] OFFICE [facility] 2022-05-24 2022-05-24 [facility] 1.2.840.114 [id number] Univers 00:00:00 00:00:00 [facility] 350.1.13.10 it y of [place] 4.2.7.2.686 Gilles as ALMA?BLEA [phone] [facility] [address] OFFICE [facility] 2022-05-20 2022-05-20 [facility] 1.2.840.114 [id number] Univers 00:00:00 00:00:00 [facility] 350.1.13.10 it y of [place] 4.2.7.2.686 Gilles as ALMA?BLEA [phone] [facility] [address] OFFICE [facility] 2022-05-12 2022-05-12 [facility] 1.2.840.114 [id number] Univers 00:00:00 00:00:00 [facility] 350.1.13.10 it y of [place] 4.2.7.2.686 Gilles as ALMA?BLEA [phone] Fl kristopher CARLIN [address] [place] [address] OFFICE [facility] 2022-05-01 2022-05-01 [facility] 1.2.840.114 [id number] Univers 00:00:00 00:00:00 [facility] 350.1.13.10 it y of [place] 4.2.7.2.686 Gilles as ALMA?BLEA [phone] Fl kristopher CARLIN [address] [place] [address] OFFICE [facility] 2022-04-28 2022-04-28 [facility] 1.2.840.114 [id number] Univers 00:00:00 00:00:00 [facility] 350.1.13.10 it y of [place] 4.2.7.2.686 Gilles as ALMA?BLEA [phone] Fl kristopher [address] OFFICE [facility] 2022-03-29 2022-03-29 [facility] 1.2.840.114 [id number] Univers 00:00:00 00:00:00 [facility] 350.1.13.10 it y of [place] 4.2.7.2.686 Gilles as ALMA?BLEA [phone] Fl kristopher [address] OFFICE [facility] 2022-03-08 2022-03-08 [facility] 1.2.840.114 [id number] Univers 00:00:00 00:00:00 [facility] 350.1.13.10 it y of [place] 4.2.7.2.686 Gilles as ALMA?BLEA [phone] Fl kristopher CARLIN [address] [place] [address] OFFICE [facility] 2022-02-27 2022-02-27 [facility] 1.2.840.114 [id number] Univers 00:00:00 00:00:00 [facility] HEALTH 350.1.13.10 it y of [place] 4.2.7.2.686 Gilles as ALMA?BLEA [phone] Fl kristopher [address] OFFICE [facility] 2022-02-16 2022-02-16 [facility] 1.2.840.114 [id number] Univers 00:00:00 00:00:00 [facility] 350.1.13.10 it y of [place] 4.2.7.2.686 Gilles as ALMA?BLEA [phone] [address] MEDICAL OFFICE [facility] 2022-02-15 2022-02-15 [facility] 1.2.840.114 [id number] Univers 00:00:00 00:00:00 [facility] 350.1.13.10 it y of [place] 4.2.7.2.686 Gilles as ALMA?BLEA [id number] [address] MEDICAL OFFICE [facility] 2022-02-08 2022-02-08 Orders Doctor NEV[place] 1.2.840.114 [id number] Univers 00:00:00 00:00:00 Only Unassigned, HARRIETT 350.1.13.10 ity of [place] [facility] 4.2.7.2.686 Gilles as [phone] [address] 2022-01-27 2022-01-27 [facility] 1.2.840.114 [id number] Univers 00:00:00 00:00:00 [facility] 350.1.13.10 it y of [place] 4.2.7.2.686 Gilles as ALMA?BLEA [id number] [address] MEDICAL OFFICE [facility] 2021-12-31 2021-12-31 Lit [facility] 1.2.266.562 [id number] Univers 00:00:00 00:00:00 [facility] 350.1.13.10 it y of [place] 4.2.7.2.686 Gilles as ALMA?BLEA [phone] [address] MEDICAL OFFICE [facility] 2021-11-21 2021-11-21 Shonda Leigh [facility] 1.2.840.114 [id number] Univers 00:00:00 00:00:00 Jb HEALTH 350.1.13.10 it y of [place] 4.2.7.2.686 Gilles as ALMA?BLEA [phone] [address] OFFICE [facility] 2021-11-15 2021-11-15 [facility] 1.2.840.114 [id number] Univers 00:00:00 00:00:00 [facility] 350.1.13.10 it y of [place] 4.2.7.2.686 Gilles as ALMA?BLEA [id number] [address] 2021-10-24 2021-10-24 [facility] 1.2.840.114 [id number] Univers 00:00:00 00:00:00 Kkio HEALTH 350.1.13.10 it y of [place] 4.2.7.2.686 Gilles as ALMA?BLEA [phone] [address] 2021-10-02 2021-10-02 [facility] 1.2.840.114 [id number] Univers 00:00:00 00:00:00 [facility] 350.1.13.10 it y of [place] 4.2.7.2.686 Gilles as ALMA?BLEA [id number] [address] OFFICE [facility] 2021-09-23 2021-09-23 [facility] 1.2.840.114 [id number] Univers 00:00:00 00:00:00 [facility] 350.1.13.10 it y of [place] 4.2.7.2.686 Gilles as ALMA?BLEA [id number] [address] OFFICE [facility] 2021-08-31 2021-08-31 [facility] 1.2.840.114 [id number] Univers 00:00:00 00:00:00 [facility] 350.1.13.10 it y of [place] 4.2.7.2.686 Gilles as ALMA?BLEA [phone] [address] 2021-08-27 2021-08-27 [facility] 1.2.840.114 [id number] Univers 00:00:00 00:00:00 [facility] 350.1.13.10 it y of [place] 4.2.7.2.686 Gilles as ALMA?BLEA [phone] Fl kristopher CARLIN [address] [place] [address] OFFICE [facility] 2021-07-24 2021-07-24 Reftracy [facility] 1.2.840.114 [id number] Univers 00:00:00 00:00:00 [facility] 350.1.13.10 it y of [place] 4.2.7.2.686 Gilles [address] PROFESSIO [phone] [facility] CHRISTIANA [address] [place] [address] OFFICE [facility] ONE 2021-07-02 2021-07-02 Office [facility] 1.2.840.114 [id number] Univers 10:15:00 10:30:00 Visit [facility] 350.1.13.10 [facility] 4.2.7.2.686 Gilles as ALMA?BLEA [phone] Fl kristopher CARLIN [address] [place] [address] 2021-07-02 2021-07-02 Outpatient [facility] [id number] Univers 10:15:00 10:15:00 [facility] 2021-07-02 2021-07-02 [facility] [id number] Univers 10:15:00 10:15:00 [facility] 2021-06-27 2021-06-27 [facility] 1.2.840.114 [id number] Univers 00:00:00 00:00:00 [facility] 350.1.13.10 it y of [place] 4.2.7.2.686 Gilles as PROFESSIO [phone] [address] ONE 2021-06-08 2021-06-08 [facility] 1.2.840.114 [id number] Univers 00:00:00 00:00:00 [facility] 350.1.13.10 it y of [place] 4.2.7.2.686 Gilles as PROFESSIO [phone] [address] ONE 2021-06-06 2021-06-06 [facility] 1.2.840.114 [id number] Univers 00:00:00 00:00:00 [facility] 350.1.13.10 it y of [place] 4.2.7.2.686 Gilles as PROFESSIO [phone] Fl kristopher VILLEDA [address] [place] [address] OFFICE [facility] ONE 2021-06-02 2021-06-02 [facility] 1.2.840.114 [id number] Univers 00:00:00 00:00:00 [facility] 350.1.13.10 it y of [place] 4.2.7.2.686 Gilles as PROFESSIO [phone] Fl kristopher VILLEDA [address] [place] [address] OFFICE [facility] ONE 2021-05-10 2021-05-10 [facility] 1.2.840.114 [id number] Univers 00:00:00 00:00:00 [facility] 350.1.13.10 it y of [place] 4.2.7.2.686 Gilles as ALMA?BLEA [phone] Fl kristopher CARLIN [address] [place] [address] OFFICE [facility] 2021-04-11 2021-04-11 [facility] 1.2.840.114 [id number] Univers 00:00:00 00:00:00 [facility] 350.1.13.10 it y of [place] 4.2.7.2.686 Gilles as ALMA?BLEA [phone] [facility] [address] OFFICE [facility] 2021-03-14 2021-03-14 [facility] 1.2.840.114 [id number] Univers 00:00:00 00:00:00 [facility] 350.1.13.10 it y of [place] 4.2.7.2.686 Gilles as PROFESSIO [phone] Fl kristopher VILLEDA [address] [place] [address] OFFICE [facility] ONE 2021-03-14 2021-03-14 [facility] 1.2.840.114 [id number] Univers 00:00:00 00:00:00 [facility] 350.1.13.10 it y of [place] 4.2.7.2.686 Gilles [address] PROFESSIO [phone] [facility] CHRISTIANA [address] [place] [address] OFFICE [facility] ONE 2021-03-01 2021-03-01 [facility] 1.2.840.114 [id number] Univers 00:00:00 00:00:00 [facility] 350.1.13.10 it y of [place] 4.2.7.2.686 Gilles [address] PROFESSIO [phone] [facility] NAL [address] [place] [address] ONE 2021-02-26 2021-02-26 [facility] 1.2.840.114 [id number] Univers 00:00:00 00:00:00 [facility] 350.1.13.10 it y of [place] 4.2.7.2.686 Gilles as PROFESSIO [phone] [facility] NAL [address] [place] [address] ONE 2021-02-16 2021-02-16 [facility] 1.2.840.114 [id number] Univers 00:00:00 00:00:00 [facility] 350.1.13.10 it y of [place] 4.2.7.2.686 Gilles as PROFESSIO [phone] [facility] NAL [address] [place] [address] ONE 2021-01-25 2021-01-25 [facility] 1.2.840.114 [id number] Univers 00:00:00 00:00:00 [facility] 350.1.13.10 it y of [place] 4.2.7.2.686 Gilles [address] PROFESSIO [phone] [facility] NAL [address] [place] [address] ONE 2021-01-20 2021-01-20 [facility] 1.2.840.114 [id number] Univers 00:00:00 00:00:00 [facility] 350.1.13.10 it y of [place] 4.2.7.2.[address]io [phone] [facility] nal [address] [place] [address] Office [facility] One 2020-12-26 2020-12-26 Outpatient Felipe PALOMO [facility] [id number] Univers 13:00:00 13:00:00 PHILIPP brown [facility] 2020-12-26 2020-12-26 Imm/Inj Nurse, Adc Pob Immunization [facility] 1.2.840.114 [id number] Univers 12:56:53 12:56:59 Visit Philipp Palomo [place] 350.1.13 .10 ity of [place] 4[place]2.7.2.686 [place] Profess[place] [phone] Fl dical nal [address] [facility] 2020-12-25 2020-12-25 [facility] 1.2.840.114 [id number] Univers 00:00:00 00:00:00 [facility] 350.1.13.10 it y of [place] 4.2.7.2.686 Gilles as Professio [phone] Fl dical nal [address] [place] [facility] One 2020-12-18 2020-12-18 [facility] 1.2.840.114 [id number] Univers 00:00:00 00:00:00 [facility] 350.1.13.10 it y of [place] 4.2.7.2.686 Gilles as Professio [phone] Fl dical nal [address] [place] Office [facility] One 2020-11-29 2020-11-29 [facility] 1.2.840.114 [id number] Univers 00:00:00 00:00:00 [facility] 350.1.13.10 it y of [place] 4.2.7.2.686 Gilles as Professio [phone] Fl dical nal 0[address] [place] Office [facility] One 2020-11-24 2020-11-24 [facility] 1.2.840.114 [id number] Univers 00:00:00 00:00:00 [facility] 350.1.13.10 it y of [place] 4.2.7.2.686 Gilles as Professio [phone] Fl dical nal [address] [place] Office [facility] One 2020-11-04 2020-11-04 [facility] 1.2.840.114 [id number] Univers 00:00:00 00:00:00 [facility] 350.1.13.10 it y of [place] 4.2.7.2.686 Gilles as Professio [phone] Fl dical nal [address] [place] Office [facility] One 2020-10-10 2020-10-10 Shonda Burch [facility] 1.2.840.114 [id number] Univers 00:00:00 00:00:00 [facility] 350.1.13.10 it y of [place] 4.2.7.2.686 Gilles as Professio [phone] Fl dical nal [address] [place] [facility] One 2020-09-19 2020-09-19 [facility] 1.2.840.114 [id number] Univers 00:00:00 00:00:00 [facility] 350.1.13.10 it y of [place] 4.2.7.2.686 Gilles as Professio [phone] Fl dical nal [address] [place] [facility] One 2020-09-18 2020-09-18 [facility] 1.2.840.114 [id number] Univers 00:00:00 00:00:00 [facility] 350.1.13.10 it y of [place] 4.2.7.2.686 Gilles as Professio [phone] Fl dical nal 0[address] [place] Office [facility] One 2020-09-14 2020-09-14 [facility] 1.2.840.114 [id number] Univers 00:00:00 00:00:00 [facility] 350.1.13.10 it y of [place] 4.2.7.2.686 Gilles as Professio [phone] Fl dical nal [address] [place] [facility] One 2020-09-04 2020-09-04 Lit [facility] 1.2.228.929 [id number] Univers 00:00:00 00:00:00 [facility] 350.1.13.10 it y of [place] 4.2.7.2.686 Gilles as Professio [phone] Fl dical nal 0[address] [place] [facility] One 2020-09-01 2020-09-01 Lit [facility] 1.2.848.130 [id number] Univers 00:00:00 00:00:00 [facility] 350.1.13.10 it y of [place] 4.2.7.2.686 Gilles as Professio [phone] Fl dical nal 0[address] [place] [facility] One 2020-08-29 2020-08-29 Telephone Marilia [facility] 1.2.705.357 [id number] Univers 00:00:00 00:00:00 [facility] 350.1.13.10 it y of [place] 4.2.7.2.686 Gilles as Professio [phone] Fl dical nal 0[address] [place] Office [facility] One 2020-08-25 2020-08-25 Reftracy Burch [facility] 1.2.840.114 [id number] Univers 00:00:00 00:00:00 [facility] 350.1.13.10 it y of [place] 4.2.7.2.686 Gilles as Professio [phone] Fl dical nal 044 [facility] One 2020-08-23 2020-08-23 Psychiatry Teacher Lab, Adc Fam Pob I [facility] 1.2. 840.114 [id number] Univers 09:57:44 10:17:44 Visit Toshia [facility] 350.1.13.10 ity of [place] 4.2.7.2.686 Gilles as Professio [phone] Fl dical nal Mihcele [facility] One 2020-08-23 2020-08-23 Outpatient R [facility] [id number] Univers 10:00:00 10:00:00 ity of [facility] 2020-08-23 2020-08-23 Telephone [facility] 1.2.038.555 [id number] Univers 00:00:00 00:00:00 [facility] 350.1.13.10 it y of [place] 4.2.7.2.686 Gilles as Professio [phone] Fl dical nal 044 [facility] One 2020-08-21 2020-08-21 Telephone Marilia [facility] 1.2.807.365 [id number] Univers 00:00:00 00:00:00 [facility] 350.1.13.10 it y of [place] 4.2.7.2.686 Gilles as Professio [phone] Fl dical nal 0[address] [place] Office [facility] One 2020-08-18 2020-08-18 Psychiatry Teacher Lab, Adc Fam Pob I [facility] 1.2. 840.114 [id number] Univers 08:54:44 10:01:28 Visit Toshia Atkins 350.1.13.10 ity of [place] 4.2.7.2.686 Gilles as Professio [phone] Fl dical nal [address] [place] [address] Office [facility] One 2020-08-18 2020-08-18 [facility] [id number] Univers 09:20:00 09:20:00 TOSHIA brown [facility] 2020-08-17 2020-08-17 Office [facility] 1.2.840.114 [id number] Univers 15:30:25 16:04:05 Visit Toshia Guan 350.1.13.10 it y of [place] 4.2.7.2.686 Gilles as Professio [phone] Fl dical nal [address] [place] [address] One 2020-08-17 2020-08-17 Outpatient Felipe ATKINS [facility] [id number] Univers 15:30:00 15:30:00 TOSHIA [facility] 2020-07-31 2020-07-31 [facility] 1.2.840.114 [id number] Univers 00:00:00 00:00:00 [facility] [id number] [facility] [place] [id number] G[facility] as Professio [phone] Fl dical nal [address] [place] [address] Office [facility] One 2020-07-20 2020-07-20 [facility] 1.2.840.114 [id number] Univers 00:00:00 00:00:00 [facility] [id number] [facility] [place] [id number] [facility]io [phone] Fl dical nal [address] [place] Office [facility] One 2020-06-28 2020-06-28 [facility] 1.2.840.114 [id number] Univers 00:00:00 00:00:00 [facility] [id number] [facility] [place] [id number] [facility]io [phone] Fl dical nal [address] [place] Office [facility] 2020-05-31 2020-05-31 [facility] 1.2.840.114 [id number] Univers 00:00:00 00:00:00 [facility] [id number] [facility] [place] [id number] [facility] Professio [phone] Fl dical nal [address] [place] [address] One 2020-05-26 2020-05-26 [facility] 1.2.840.114 [id number] Univers 00:00:00 00:00:00 [facility] 350.1.13.10 [facility] [place] [id number] [facility] Professio [phone] Fl dical nal [address] [place] [address] One 2020-05-10 2020-05-10 Outpatient R FÁTIMA [facility] [id number] Univers 09:10:00 09:10:00 MIRTHA [facility] 2020-04-19 2020-04-19 Outpatient R FÁTIMA [facility] [id number] Univers 10:00:00 10:00:00 MIRTHA [facility] 2020-04-19 2020-04-19 Outpatient R FÁTIMA [facility] [id number] Univers 08:10:00 08:10:00 MIRTHA [facility] 2020-04-03 2020-04-03 [facility] 1.2.840.114 [id number] Univers 00:00:00 00:00:00 [facility] 350.1.13.10 [facility] [place] [id number] [facility] Professio [phone] Fl dical nal [address] [place] [id number] One 2020-03-23 2020-03-23 [facility] 1.2.840.114 [id number] Univers 00:00:00 00:00:00 [facility] [id number] it y of [place] [id number] Gilles as Professio [phone] Fl dical nal [address] [place] [address] One 2020-03-16 2020-03-16 [facility] 1.2.840.114 [id number] Univers 14:37:30 15:18:00 Visit Kiko [facility] [id number] it [place] of [place] [id number] Gilles as Professio [phone] [address] 2020-03-16 2020-03-16 Outpatient Felipe BURCH [facility] [id number] Univers 14:45:00 14:45:00 KIKO brown [facility] 2020-02-22 2020-02-22 [facility] 1.2.840.114 [id number] Univers 00:00:00 00:00:00 [facility] [id number] [place] of [place] [id number] Gilles as Professio [phone] [address] 2020-02-01 2020-02-01 Psychiatry Teacher Lab, Adc Fam Pob I [facility] 1.2. 840.114 [id number] Univers 08:38:41 08:58:41 Visit Kiko Burch [id number] [place]y of [place] [id number] Gilles as Professio [phone] [address] Office [facility] 2020-02-01 2020-02-01 Outpatient Felipe BURCH [facility] [id number] Univers 08:40:00 08:40:00 KIKO brown [facility] 2020-01-31 2020-01-31 [facility] 1.2.840.114 [id number] Univers 12:28:25 12:43:25 Visit Kiko [facility] [id number] it y of [place] [id number] Gilles as Professio [phone] [address] Office [facility] 2020-01-31 2020-01-31 Outpatient Felipe BURCH [facility] [id number] Univers 12:30:00 12:30:00 KIKO brown [facility] 2020-01-19 2020-01-19 [facility] 1.2.840.114 [id number] Univers 00:00:00 00:00:00 [facility] [id number] it [place] of [place] [id number] Gilles as Professio [phone] [address] One 2020-01-02 2020-01-02 [facility] 1.2.840.114 [id number] Univers 00:00:00 00:00:00 [facility] [id number] it [place] of [place] [id number] Gilles as Professio [phone] [address] One 2019-12-27 2019-12-27 [facility] 1.2.840.114 [id number] Univers 00:00:00 00:00:00 [facility] [id number] it y of [place] [id number] Gilles as Professio [phone] [address] One 2019-11-24 2019-11-24 [facility] [id number] Univers 15:30:00 15:30:00 KIKO [facility] 2019-11-20 2019-11-20 [facility] 1.2.840.114 [id number] Univers 00:00:00 00:00:00 [facility] [id number] it y of [place] [id number] Gilles as Professio [phone] [address] One 2019-10-20 2019-10-20 [facility] 1.2.840.114 [id number] Univers 00:00:00 00:00:00 [facility] [id number] it y of [place] [id number] Gilles as Professio [phone] [address] One 2019-08-03 2019-08-03 Lit [facility] [id number] Univers 00:00:00 00:00:00 Kiko [place] [id number] i ty [place].2.[place] Profess[place] [phone] [address] 2019-05-19 2019-05-19 Office Kiersten [facility] 1.2.840.114 [id number] Univers 11:52:29 12:07:29 Visit [facility] [id number] it y of [place] [id number] Gilles as Professio [phone] [address] 2019-05-19 2019-05-19 Orders Doctor NEVILLE 1.2.840.114 [id number] Univers 00:00:00 00:00:00 Only Unassigned, HARRIETT [id number] ity of [place] [facility] 4.2.7.2.686 Gilles as [phone] [address] 2019-05-06 2019-05-06 Reftracy Burch [facility] 1.2.840.114 [id number] Univers 00:00:00 00:00:00 [facility] [id number] it y of [place] [id number] Gilles as Professio [phone] [address] One 2019-04-27 2019-04-27 Reftracy Burch [facility] 1.2.840.114 [id number] Univers 00:00:00 00:00:00 [facility] [id number] it y of [place] [id number] Gilles as Professio [phone] [address] One 2019-04-22 2019-04-22 Reftracy Burch [facility] 1.2.840.114 [id number] Univers 00:00:00 00:00:00 [facility] [id number] it y of [place] [id number] Gilles as Professio [phone] [address] Office [facility] One 2019-04-10 2019-04-10 Reftracy Burch [facility] 1.2.840.114 [id number] Univers 00:00:00 00:00:00 [facility] [id number] it y of [place] [id number] Gilles as Professio [phone] [address] Office Building One 2018-12-10 2018-12-10 [facility] 1.2.840.114 [id number] Univers 00:00:00 00:00:00 [facility] [id number] it y of [place] [id number] Gilles as Professio [phone] Fl dicnh nal [address] [place] [address] Office [facility] One 2018-12-03 2018-12-03 [facility] 1.2.840.114 [id number] Univers 00:00:00 00:00:00 [facility] [id number] it y of [place] [id number] Gilles as Professio [phone] Fl dicnh nal [address] [place] [address] One 2018-11-09 2018-11-09 [facility] 1.2.840.114 [id number] Univers 00:00:00 00:00:00 [facility] [id number] it [place] of [place] [id number] Gilles as Professio [phone] [address] Office [facility] One Results This patient has no known results.
[2022-11-20 10:50] LABS: Absolute Lymphocytes (CBC) 1.7 K/uL (0.7-4.9); Lymphocytes % 39.9 % (15.3-44.8); MCV 86.2 fL (80-100); MPV 7.7 fL (7.6-11.3); Platelets 215 thou/uL (152-406); RBC Red Blood Cell Count 4.18 M/uL (3.86-4.86)
[2022-11-20] MEDS ORDERED: FAMOTIDINE 20 MG/2 ML VIAL IV ONE (10:55)
[2022-11-20] MEDS ORDERED: NA CHLORIDE 0.9% 1,000 ML ONE (10:55)
[2022-11-20 11:07] LABS: Bilirubin Total 0.5 mg/dL (0.2-1.0); Potassium 3.7 mEq/L (3.5-5.1); Protein, Total 7.1 g/dL (6.4-8.2)
[2022-11-20 11:23] LABS: Specific Gravity 1.023 (1.005-1.030); Urine Bacteria <20 /HPF (<20); Urine Bilirubin NEGATIVE (Negative); Urine Blood Negative (Negative); Urine Clarity Extremely Turbid (Clear); Urine Color Yellow (Yellow); Urine Glucose NEGATIVE (Negative); Urine Mucus Slight /HPF (None Seen); Urine Protein NEGATIVE (Negative); Urine RBC None Seen /HPF (None Seen); Urine Urobilinogen Normal (Normal); Urine pH 5.5 (5.0-7.0)
--- NOTE | 2022-11-20 13:12 | RAD REPORT ---
EXAM DESCRIPTION: CTAbdomen Pelvis W Contrast - 11/20/2022 1:02 pm CLINICAL HISTORY: Abdominal pain. ABD PAIN COMPARISON: CT ABD PELVIS W CONTRAST dated 03/27/2008 TECHNIQUE: Biphasic CT imaging of the abdomen and pelvis was performed with 100 ml non-ionic IV cont rast. All CT scans are performed using dose optimization technique as appropriate and may include automated exposure control or mA/KV adjustment according to patient size. FINDINGS: The lung bases are clear. The liver is diffusely fatty. 3 cm cyst likely present inferior left lobe. No aggressive liver lesion or biliary dilatation. Spleen, pancreas, adrenal glands and kidneys are within normal limits. Small fat containing ventral hernia upper abdominal wall. No bowel obstruction, free air, free fluid or abscess. Nonvisualized appendix. No evidence of signi ficant lymphadenopathy. Mild lumbosacral degenerative changes. IMPRESSION: No acute intra-abdominal or pelvic finding. Diffuse fatty liver. Fat containing small moderate-sized ventral hernia upper abdominal wall
--- NOTE | 2022-11-20 13:17 | ER ---
Nurse's Notes [facility] Name: Roxie Hernandez Age: 67 yrs Sex: Female : 1955 Arrival Date: 11/20/2022 Time: 10:01 Bed 7 Private MD: Diagnosis: Abdominal tenderness;Ventral hernia without obstruction or gangrene;Fatty (change of) liver, not elsewhere classified Presentation: 11/20 10:21 Chief complaint: Patient states: abdominal pain that started this am. States she has me1 had a "lump for many years and assumed it was a hernia but it never hurt before and it started hurting this morning." Denies n/v/d or constipation. Denies fever/chills. 10:21 Coronavirus screen: Vaccine status: Patient reports receiving the 2nd dose of the covid me1 vaccine. At this time, the client does not indicate any symptoms associated with coronavirus-19. Ebola Screen: No symptoms or risks identified at this time. 10:21 Method Of Arrival: Ambulatory [facility] 10:21 Initial Sepsis Screen: Does the patient meet any 2 criteria? No. Patient's initial [facility] sepsis screen is negative. Does the patient have a suspected source of infection? No. Patient's initial sepsis screen is negative. Risk Assessment: Do you want to hurt yourself or someone else? Patient reports no desire to harm self or others. Onset of symptoms was November 20, 2022. 10:21 Acuity: LARRY 3 me1 Historical: - Allergies: 10:38 Vicodin; me1 - Home Meds: 10:38 effexor [Active]; atorvastatin [Active]; me1 - PMHx: 10:38 Anxiety; Hypercholesterolemia; bowel perforation; me1 - PSHx: 10:38 hysterectomy; repair of bowel perforation; me1 - Immunization history:: Adult Immunizations unknown. - Social history:: Smoking status: Patient/guardian denies using tobacco, but has a distant history of tobacco abuse. Screenin:30 [facility] ED Fall Risk Assessment (Adult) History of falling in the last 3 months, aa5 including since admission No falls in past 3 months (0 pts) Confusion or Disorientation No (0 pts) Intoxicated or Sedated No (0 pts) Impaired Gait No (0 pts) Mobility Assist Device Used No (0 pt) Altered Elimination No (0 pt) Score/Fall Risk Level 0 - 2 = Low Risk Oriented to surroundings, Maintained a safe environment, Educated pt \\T\\ family on fall prevention, incl call for assistance when getting out of bed. Abuse screen: Denies threats or abuse. Nutritional screening: No deficits noted. Tuberculosis screening: No symptoms or risk factors identified. Assessment: 10:30 General: Appears comfortable, Behavior is calm, cooperative. Pain: Complains of pain in aa5 left side of abdomen Pain currently is 3 out of 10 on a pain scale. Quality of pain is described as sharp, Pain began this morning Is continuous. Neuro: Level of Consciousness is awake, alert, obeys commands, Oriented to person, place, time, situation. Cardiovascular: Heart tones S1 S2 present Rhythm is regular. Respiratory: Airway is patent Respiratory effort is even, unlabored, Respiratory pattern is regular, symmetrical. GI: Abdomen is flat, non-distended, Bowel sounds present X 4 quads. Abd is soft and non tender X 4 quads. Patient currently denies diarrhea, nausea, vomiting. : No signs and/or symptoms were reported regarding the genitourinary system. EENT: No signs and/or symptoms were reported regarding the EENT system. Derm: Skin is pink, warm \\T\\ dry. Musculoskeletal: Range of motion: intact in all extremities. 11:11 Reassessment: Patient and/or family updated on plan of care and expected duration. Pain rs5 level reassessed. Patient denies pain at this time. Pt has finished oral iodinated contrast. CT called and informed that patient has finished oral iodinated contrast. 11:55 Reassessment: Patient is alert, oriented x 3, equal unlabored respirations, skin aa5 warm/dry/pink. Pt ambulatory to restroom, awaiting CT scan . 12:02 Reassessment: Patient appears in no apparent distress at this time. Patient and/or hb family updated on plan of care and expected duration. Pain level reassessed. Patient is alert, oriented x 3, equal unlabored respirations, skin warm/dry/pink. 13:15 Reassessment: Patient appears in no apparent distress at this time. Patient and/or hb family updated on plan of care and expected duration. Pain level reassessed. Patient is alert, oriented x 3, equal unlabored respirations, skin warm/dry/pink. 14:00 Reassessment: Patient appears in no apparent distress at this time. Patient and/or nj1 family updated on plan of care and expected duration. Pain level reassessed. Patient is alert, oriented x 3, equal unlabored respirations, skin warm/dry/pink. Patient denies pain at this time. Vital Signs: 10:21 BP 163 / 95; Pulse 62; Resp 17; Temp 97.7(O); Pulse Ox 99% on R/A; Weight 63.5 kg; me1 Height 5 ft. 4 in. ; 12:30 BP 173 / 88; Pulse 58; Resp 17; Pulse Ox 98% ; hb 13:45 BP 158 / 60; Pulse 58; Resp 16; Pulse Ox 100% on R/A; hb 10:21 Body Mass Index 24.03 (63.50 kg, 162.56 cm) md1 ED Course: 10:05 Patient arrived in ED. im 10:10 Phi Flanagan MD is Attending Physician. karen 10:13 Pau Mueller RN is Primary Nurse. aa5 10:21 Arm band placed on Patient placed in waiting room. me1 10:30 Patient has correct armband on for positive identification. Bed in low position. Call aa5 light in reach. Side rails up X2. Adult w/ patient. Pulse ox on. NIBP on. 10:35 Initial lab(s) drawn, by md, sent to lab. Inserted saline lock: 20 gauge in right aa5 antecubital area, using aseptic technique. Blood collected. 10:38 Triage completed. me1 13:04 CT Abd/Pelvis - PO and IV Contrast In Process Unspecified. EDMS 13:16 Lucian Pan MD is Referral Physician. karen 13:57 No provider procedures requiring assistance completed. IV discontinued, intact, hb bleeding controlled, No redness/swelling at site. 13:58 Provided Education on: . hb Administered Medications: 10:50 Drug: NS 0.9% IV 1000 ml Route: IV; Rate: 1 bolus; Site: right antecubital; rs5 14:02 Follow up: Response: No adverse reaction; IV Status: Completed infusion; IV Intake: nj1 1000ml 10:50 Not Given (Patient Refused): Ondansetron IVP 4 mg IVP once; over 2 minutes aa5 10:50 Drug: Famotidine IVP 20 mg Route: IVP; Site: right antecubital; rs5 14:02 Follow up: Response: No adverse reaction nj1 Medication: 13:57 VIS not applicable for this client. hb Intake: 14:02 IV: 1000ml; Total: 1000ml. nj1 Outcome: 13:16 Discharge ordered by . karen 13:57 Discharged to home ambulatory. hb 13:57 Condition: stable 13:57 Discharge instructions given to patient, Instructed on discharge instructions, follow up and referral plans. medication usage, Demonstrated understanding of instructions, follow-up care, medications, Prescriptions given X 2. 14:14 Patient left the ED. nj1 Signatures: Dispatcher [employer] EDMS Phi Flnaagan MD MD cha Calderon, Audri, RN RN aa5 Sue Aguilera RN RN Aiden Alicea, RN RN rs5 Kassie Issa RN RN nj1 Zaida Nieves Michelle RN RN me1 Corrections: (The following items were deleted from the chart) 10:42 10:38 Immunization history: Adult Immunizations unknown, me1 me1 10:42 10:38 Social history: Smoking status: Patient/guardian denies using tobacco, but has a me1 distant history of tobacco abuse, me1 10:42 10:38 Arm band placed on Patient placed in waiting room, me1 me1
--- NOTE | 2022-11-20 13:17 | EDPHYS ---
Physician Documentation [facility] Name: Roxie Hernandez Age: 67 yrs Sex: Female : 1955 Arrival Date: 11/20/2022 Time: 10:01 Bed 7 Private MD: ED Physician Phi Flanagan HPI: 11/20 11:03 This 67 yrs old Female presents to ER via Ambulatory with complaints of karen Abdominal Pain. 11:03 The patient presents with abdominal pain in the upper abdomen, in the left upper karen quadrant. Onset: The symptoms/episode began/occurred just prior to arrival, this morning. The symptoms do not radiate. Associated signs and symptoms: none. The symptoms are described as dull. Modifying factors: The symptoms are alleviated by nothing, the symptoms are aggravated by nothing. Severity of pain: At its worst the pain was mild in the emergency department the pain is unchanged. The patient has not experienced similar symptoms in the past. Historical: - Allergies: 10:38 Vicodin; me1 - Home Meds: 10:38 effexor [Active]; atorvastatin [Active]; me1 - PMHx: 10:38 Anxiety; Hypercholesterolemia; bowel perforation; me1 - PSHx: 10:38 hysterectomy; repair of bowel perforation; me1 - Immunization history:: Adult Immunizations unknown. - Social history:: Smoking status: Patient/guardian denies using tobacco, but has a distant history of tobacco abuse. ROS: 11:04 Constitutional: Negative for fever, chills, and weight loss, Eyes: Negative for injury, karen pain, redness, and discharge, ENT: Negative for injury, pain, and discharge, Neck: Negative for injury, pain, and swelling, Cardiovascular: Negative for chest pain, palpitations, and edema, Respiratory: Negative for shortness of breath, cough, wheezing, and pleuritic chest pain, Back: Negative for injury and pain, : Negative for injury, bleeding, discharge, and swelling, MS/Extremity: Negative for injury and deformity, Skin: Negative for injury, rash, and discoloration, Neuro: Negative for headache, weakness, numbness, tingling, and seizure, Psych: Negative for depression, anxiety, suicide ideation, homicidal ideation, and hallucinations, Allergy/Immunology: Negative for hives, rash, and allergies, Endocrine: Negative for neck swelling, polydipsia, polyuria, polyphagia, and marked weight changes, Hematologic/Lymphatic: Negative for swollen nodes, abnormal bleeding, and unusual bruising. 11:04 Abdomen/GI: Positive for abdominal pain, of the left upper quadrant. Exam: 11:04 Constitutional: This is a well developed, well nourished patient who is awake, alert, karen and in no acute distress. Head/Face: Normocephalic, atraumatic. Eyes: Pupils equal round and reactive to light, extra-ocular motions intact. Lids and lashes normal. Conjunctiva and sclera are non-icteric and not injected. Cornea within normal limits. Periorbital areas with no swelling, redness, or edema. ENT: Nares patent. No nasal discharge, no septal abnormalities noted. Tympanic membranes are normal and external auditory canals are clear. Oropharynx with no redness, swelling, or masses, exudates, or evidence of obstruction, uvula midline. Mucous membranes moist. Neck: Trachea midline, no thyromegaly or masses palpated, and no cervical lymphadenopathy. Supple, full range of motion without nuchal rigidity, or vertebral point tenderness. No Meningismus. Chest/axilla: Normal chest wall appearance and motion. Nontender with no deformity. No lesions are appreciated. Cardiovascular: Regular rate and rhythm with a normal S1 and S2. No gallops, murmurs, or rubs. Normal PMI, no JVD. No pulse deficits. Respiratory: Lungs have equal breath sounds bilaterally, clear to auscultation and percussion. No rales, rhonchi or wheezes noted. No increased work of breathing, no retractions or nasal flaring. Back: No spinal tenderness. No costovertebral tenderness. Full range of motion. Skin: Warm, dry with normal turgor. Normal color with no rashes, no lesions, and no evidence of cellulitis. MS/ Extremity: Pulses equal, no cyanosis. Neurovascular intact. Full, normal range of motion. Neuro: Awake and alert, GCS 15, oriented to person, place, time, and situation. Cranial nerves II-XII grossly intact. Motor strength 5/5 in all extremities. Sensory grossly intact. Cerebellar exam normal. Normal gait. Psych: Awake, alert, with orientation to person, place and time. Behavior, mood, and affect are within normal limits. 11:04 Abdomen/GI: Inspection: abdomen appears normal, Bowel sounds: normal, Palpation: nontender, Liver: no appreciated palpable abnormalities, Hernia: not appreciated. Vital Signs: 10:21 BP 163 / 95; Pulse 62; Resp 17; Temp 97.7(O); Pulse Ox 99% on R/A; Weight 63.5 kg; me1 Height 5 ft. 4 in. ; 12:30 BP 173 / 88; Pulse 58; Resp 17; Pulse Ox 98% ; hb 13:45 BP 158 / 60; Pulse 58; Resp 16; Pulse Ox 100% on R/A; hb 10:21 Body Mass Index 24.03 (63.50 kg, 162.56 cm) me1 MDM: 10:10 Patient medically screened. [facility] 11:06 Differential diagnosis: bowel obstruction, Cholelithiasis, diverticulitis, gastritis, karen Mesenteric ischemia or infarction, non-specific abd pain, pancreatitis, Peptic Ulcer Disease, Pyelonephritis, urinary tract infection. Data reviewed: vital signs, nurses notes, lab test result(s), radiologic studies. Consideration of Admission/Observation Escalation of care including admission/observation considered. I considered the following discharge prescriptions or medication management in the emergency department Medications were administered in the Emergency Department. See MAR. Independent interpretation of the following test(s) in the Emergency Department CT Scan: My interpretation is ct abd pel . Test considered but Not performed: Ultrasound abd usg. Historians other than the Patient: Family Member: daughter, informed. Care significantly affected by the following chronic conditions: Obesity, anxiety, bowel perforation. Counseling: I had a detailed discussion with the patient and/or guardian regarding the historical points, exam findings, and any diagnostic results supporting the discharge/admit diagnosis, lab results, radiology results, the need for outpatient follow up, for definitive care, a family practitioner, a general surgeon. 11/20 10:27 Order name: CBC with Diff; Complete Time: 11:17 [facility] 11/20 10:27 Order name: CMP; Complete Time: 11:17 [facility] 11/20 10:27 Order name: Lipase; Complete Time: 11:17 [facility] 11/20 10:27 Order name: Urinalysis w/ reflexes; Complete Time: 11:24 [facility] 11/20 10:27 Order name: CT Abd/Pelvis - PO and IV Contrast [facility] 11/20 10:27 Order name: IV Saline Lock; Complete Time: 10:50 [facility] 11/20 10:27 Order name: Labs collected and sent; Complete Time: 10:50 [facility] Administered Medications: 10:50 Drug: NS 0.9% IV 1000 ml Route: IV; Rate: 1 bolus; Site: right antecubital; rs5 14:02 Follow up: Response: No adverse reaction; IV Status: Completed infusion; IV Intake: nj1 1000ml 10:50 Not Given (Patient Refused): Ondansetron IVP 4 mg IVP once; over 2 minutes aa5 10:50 Drug: Famotidine IVP 20 mg Route: IVP; Site: right antecubital; rs5 14:02 Follow up: Response: No adverse reaction nj1 Disposition Summary: 11/20/22 13:16 Discharge Ordered Location: Home [facility] Problem: new karen Symptoms: have improved karen Condition: Stable karen Diagnosis - Abdominal tenderness karen - Ventral hernia without obstruction or gangrene karen - Fatty (change of) liver, not elsewhere classified karen Followup: karen - With: Private Physician - When: 2 - 3 days - Reason: Recheck today's complaints, Continuance of care, Re-evaluation by your physician Followup: karen - With: - When: 2 - 3 days - Reason: Recheck today's complaints, Re-evaluation by your physician Discharge Instructions: - Discharge Summary Sheet karen - Abdominal Pain, Adult karen - Hernia, Adult karen - Abdominal Pain, Adult, [id number] karen - Fatty Liver Disease karen - Ventral Hernia karen - Nonalcoholic Fatty Liver Disease Diet, Adult [facility] Forms: - Medication Reconciliation Form [facility] - Thank You Letter [facility] - Antibiotic Education [facility] - Prescription Opioid Use [facility] - Patient Portal Instructions [facility] - Leadership Thank You Letter [facility] Prescriptions: - Pepcid 20 mg Oral Tablet - take 1 tablet by ORAL route every 12 hours for 14 days; 28 tablet; Refills: 0, [facility] Product Selection Permitted - dicyclomine 20 mg Oral Tablet - take 1 tablet by ORAL route 4 times per day; 20 tablet; Refills: 0, Product [facility] Selection Permitted Signatures: Dispatcher [employer] Phi Gomez MD MD cha Sotelo, Ricky RN RN rs5 Evangelina Dang RN RN me1 Pau Mueller RN aa5 Kassie Issa RN nj1 Corrections: (The following items were deleted from the chart) 10:42 10:38 Immunization history: Adult Immunizations unknown, me1 me1 : 10:38 Social history: Smoking status: Patient/guardian denies using tobacco, but has a me1 distant history of tobacco abuse, me1
[2022-11-20 14:19] VITALS: TEMP 97.7
[2022-11-20 14:22] VITALS: BP 158/60; O2SAT 100
== END 2022-11-20 14:14 | disposition home or self-care (01) ==
LOC: ER 10:01
DX: K43.9 Ventral hernia without obstruction or gangrene (principal); K76.0 Fatty (change of) liver, not elsewhere classified; Z88.5 Allergy status to narcotic agent
CPT/HCPCS: 85025; 81001; 36415; 83690; 80053; 74177; Q9967; J7030